=== PATIENT | female | born 1965 | race Caucasian/White ===

== ENCOUNTER → 2019-10-01 | Outpatient (CLI) | payer MEDICARE ==
[~2019-10-01] MED LIST: ADV50250 IH; ALB0.5UD NEB; ALB520 NEB; BAC10T PO; CARB15DR88 OP; DIPH-405 PO; FENO54TA4 PO; FLUT16SP2 NS; GUAI-776 PO; HYDR1TAB PO; IBUP-1984 PO; LORA10CA PO; MONT10TA21 PO; OMEG1CAP54 PO; OMEP-50 PO; PRAV40TA65 PO; PRED5DRO OP; SUMA25TA35 PO
[2019-10-01 10:34] LABS: BASOPHILS % (AUTO) 0.4 % (0-1); EOSINOPHILS # (AUTO) 0.5 X10'3 (0-0.9); EOSINOPHILS % (AUTO) 4.9 % (0-6); HEMATOCRIT 43.6 % (35.0-45.0); HEMOGLOBIN 14.2 g/dl (12.0-16.0); LYMPHOCYTES # (AUTO) 2.2 X10'3 (1.1-4.8); LYMPHOCYTES % (AUTO) 20.4 % (21-51); MEAN CORPUSCULAR HEMOGLOBIN 27.4 PG (27.0-31.0); MEAN CORPUSCULAR HGB CONC 32.7 g/dL (33.0-36.5); MEAN PLATELET VOLUME 7.2 FL (7.4-10.4); MONOCYTES # (AUTO) 0.8 X10'3 (0-0.9); NEUTROPHILS # (AUTO) 7.2 X10'3 (1.8-7.7); NEUTROPHILS % (AUTO) 67.3 % (42-75); PLATELET COUNT 353 X10'3 (140-440); RED BLOOD COUNT 5.19 X10'6 (4.20-5.60); RED CELL DISTRIBUTION WIDTH 16.8 % (11.5-14.5); WHITE BLOOD COUNT 10.7 X10'3 (4.5-11.0)
[2019-10-01 10:45] LABS: PARTIAL THROMBOPLASTIN TIME 26 SECONDS (22-32)
[2019-10-01 10:55] LABS: ALANINE AMINOTRANSFERASE 37 U/L (12-78); ALKALINE PHOSPHATASE 133 IU/L (46-116); ANION GAP 12 (8-16); ASPARTATE AMINO TRANSFERASE 25 U/L (10-37); BILIRUBIN,TOTAL 0.5 MG/DL (0.1-1.0); BLOOD UREA NITROGEN 7 MG/DL (7-18); BUN/CREATININE RATIO 6.8 (6.6-38.0); CALCIUM 9.7 MG/DL (8.5-10.1); CHLORIDE 106 MMOL/L (99-107); CREATININE 1.03 MG/DL (0.40-0.90); GLUCOSE 97 MG/DL (70-104); POTASSIUM 3.9 MMOL/L (3.5-5.1); SODIUM 144 MMOL/L (135-145); TOTAL CARBON DIOXIDE 25.7 MMOL/L (24-32); eGFR 56 ML/MIN
== END | disposition home or self-care (01) ==
LOC: LAB 09:49
PROVIDERS: ATTEND Otolaryngology
DX: D69.1 Qualitative platelet defects (principal); J44.9 Chronic obstructive pulmonary disease, unspecified; Z88.8 Allergy status to other drugs, medicaments and biological substances; Z87.891 Personal history of nicotine dependence
CPT/HCPCS: 36415; 80053; 85025; 85576; 85610; 85730

== ENCOUNTER 2019-10-11 14:20 | Day surgery (SDC) | payer MEDICARE ==
[~2019-10-11] VITALS: Ht 160 cm; Wt 96.0 kg
[2019-10-11] VITALS (8 sets, daily range): BP systolic 138–152; BP diastolic 77–91
[2019-10-11] MEDS: ringers solution, lacted 1,000 ML IV SCH ×2 (08:13→08:36)
--- NOTE | 2019-10-11 13:55 | NUR ---
Received from OR via , accompanied by Anesthesiologist DR WILHELM and report given by Anesthesiolgist. AWAKENS TO VOICE. VITALS STABLE. DRESSINGS DI. CANDIS PAIN.
[~2019-10-11 14:20] MED LIST changes: -ADV50250 IH; -ALB0.5UD NEB; -ALB520 NEB; +ALBU18HF2 INH; -BAC10T PO; +BUDE10.2 PO; -CARB15DR88 OP; +CEPH500C5 PO; -DIPH-405 PO; -FENO54TA4 PO; -GUAI-776 PO; -HYDR1TAB PO; -IBUP-1984 PO; +LIDOcaine 2% (20mg/ml) 5ml vial ONE; -LORA10CA PO; -OMEG1CAP54 PO; -OMEP-50 PO; -PRAV40TA65 PO; -PRED5DRO OP; +ROSU20TA31 PO; +TRAZ-256 PO; +albuterol 2.5 MG/3 ML nebule NEB ONE; +cocaine 4% topical solution 4ml bottle ONE; +dexamethasone sod phosphate 4mg/ml inj. ONE; +ePHEDrine 50MG/ML INJ. ONE; +famotidine 10mg tablet PO ONE; +fentaNYL /PF 50mcg/ml 5ml ampule ONE; +glycopyrrolate 0.2mg/ml inj ONE; +meperidine/PF 25mg/ml syringe ONE; +midazolam 2 mg/2 ml injection ONE; +mupirocin 2% ointment 22GM ONE; +neostigmine methylsulfate 1 MG/ML 10ml vial ONE; +ondansetron/PF 4mg/2ml inj ONE; +oxymetazoline 15 ML nasal spray NS ONE; +phenylephrine 1% (X-tra strg) 15ml nasal spray NS ONE; +propofol inj 20 ML IV ONE; +rocuronium 10mg/ml inj IV ONE; +scopolamine 1.5mg patch.TD72 TD ONE; +sevoflurane 250ml liquid IH ONE; +triamcinolone acetonide 40mg/ml inj ONE
[2019-10-11] MEDS ORDERED: ringers solution, lacted 1,000 ML IV SCH (14:21)
[2019-10-11] MEDS ORDERED: proCHLORperazine 10 MG/2 ml inj IV PRN (14:25)
[2019-10-11] MEDS ORDERED: ondansetron/PF 4mg/2ml inj IV PRN (14:25)
[2019-10-11] MEDS ORDERED: meperidine/PF 25mg/ml syringe IV PRN ×3 (14:25)
[2019-10-11] MEDS ORDERED: morphine 4 MG/ML inj SYRINge IV PRN ×2 (14:25)
[2019-10-11] MEDS ORDERED: salt irrigation nasal spray 45 ML SPRAY NS PRN (14:40)
--- NOTE | 2019-10-11 15:05 | NUR ---
AWAKE AND ORIENTED. VITALS STABLE. DRESSING DI. CANDIS PAIN. HOME WITH HR SPOUSE AT THIS TIME.
== END 2019-10-11 15:05 | disposition home or self-care (01) ==
LOC: PAS 14:20
PROVIDERS: ATTEND Otolaryngology
DX: J32.8 Other chronic sinusitis (principal); J33.8 Other polyp of sinus; J44.9 Chronic obstructive pulmonary disease, unspecified; G47.33 Obstructive sleep apnea (adult) (pediatric); K21.9 Gastro-esophageal reflux disease without esophagitis; G43.909 Migraine, unspecified, not intractable, without status migrainosus; M81.0 Age-related osteoporosis without current pathological fracture; M10.9 Gout, unspecified; Z87.891 Personal history of nicotine dependence; Z90.710 Acquired absence of both cervix and uterus; Z98.41 Cataract extraction status, right eye; Z98.42 Cataract extraction status, left eye; Z90.49 Acquired absence of other specified parts of digestive tract; Z88.8 Allergy status to other drugs, medicaments and biological substances; Z79.899 Other long term (current) drug therapy
CPT/HCPCS: 31253; 31267; 61782; 70486; 70487; 82948; 87070; 87077; 87102; 87186; 93005; 94640; 94760; A6402; C9250; J1100; J2001; J2175; J2250; J2405; J2704; J2710; J3010; J3301; J7040; J7120; 88304; 88311; A4618; A7000; J3490

== ENCOUNTER 2021-11-20 06:05 | Day surgery (SDC) | payer MEDICARE, SELFPAY ==
[2021-11-19 11:07] LABS: BASOPHILS # (AUTO) 0.1 X10'3 (0-0.2); BASOPHILS % (AUTO) 0.8 % (0-1); EOSINOPHILS % (AUTO) 10.6 % (0-6); HEMATOCRIT 45.2 % (35.0-45.0); HEMOGLOBIN 14.6 g/dl (12.0-16.0); LYMPHOCYTES # (AUTO) 2.1 X10'3 (1.1-4.8); LYMPHOCYTES % (AUTO) 21.1 % (21-51); MEAN CORPUSCULAR HEMOGLOBIN 28.6 PG (27.0-31.0); MEAN CORPUSCULAR HGB CONC 32.2 g/dL (33.0-36.5); MEAN PLATELET VOLUME 8.4 FL (7.4-10.4); NEUTROPHILS # (AUTO) 5.6 X10'3 (1.8-7.7); NEUTROPHILS % (AUTO) 57.5 % (42-75); PLATELET COUNT 275 X10'3 (140-440); RED BLOOD COUNT 5.09 X10'6 (4.20-5.60); RED CELL DISTRIBUTION WIDTH 16.7 % (11.5-14.5); WHITE BLOOD COUNT 9.7 X10'3 (4.5-11.0)
[2021-11-19 11:09] LABS: APTT 22 SECONDS (22-32)
[2021-11-19 11:21] LABS: ALBUMIN 4.3 G/DL (3.4-5.0); ANION GAP 10 (8-16); BLOOD UREA NITROGEN 14 MG/DL (7-18); BUN/CREATININE RATIO 17.9 (6.6-38.0); CALCIUM 9.6 MG/DL (8.5-10.1); CHLORIDE 106 MMOL/L (99-107); CREATININE 0.78 MG/DL (0.40-0.90); GLUCOSE 93 MG/DL (70-104); POTASSIUM 4.4 MMOL/L (3.5-5.1); SODIUM 139 MMOL/L (135-145); TOTAL CARBON DIOXIDE 22.7 MMOL/L (24-32); eGFR 76 ML/MIN
[~2021-11-20] VITALS: Ht 160 cm; Wt 104.1 kg
[2021-11-20] VITALS (12 sets, daily range): BP systolic 121–148; BP diastolic 53–76
[~2021-11-20 06:05] MED LIST changes: +CEPH-585 PO; -CEPH500C5 PO; -LIDOcaine 2% (20mg/ml) 5ml vial ONE; -albuterol 2.5 MG/3 ML nebule NEB ONE; -cocaine 4% topical solution 4ml bottle ONE; -dexamethasone sod phosphate 4mg/ml inj. ONE; -ePHEDrine 50MG/ML INJ. ONE; -famotidine 10mg tablet PO ONE; -fentaNYL /PF 50mcg/ml 5ml ampule ONE; -glycopyrrolate 0.2mg/ml inj ONE; -meperidine/PF 25mg/ml syringe ONE; -midazolam 2 mg/2 ml injection ONE; -mupirocin 2% ointment 22GM ONE; -neostigmine methylsulfate 1 MG/ML 10ml vial ONE; -ondansetron/PF 4mg/2ml inj ONE; -oxymetazoline 15 ML nasal spray NS ONE; -phenylephrine 1% (X-tra strg) 15ml nasal spray NS ONE; -propofol inj 20 ML IV ONE; -rocuronium 10mg/ml inj IV ONE; -scopolamine 1.5mg patch.TD72 TD ONE; -sevoflurane 250ml liquid IH ONE; -triamcinolone acetonide 40mg/ml inj ONE
[2021-11-20] MEDS ORDERED: sodium bicarbonate (8.4%) inj. 150 ML in dextrose 5%-water 1,000 ML IV ONE (06:25)
[2021-11-20] MEDS ORDERED: LIDOcaine/PRILOcaine 5gm cream TP ONE (06:30)
[2021-11-20] MEDS ORDERED: POTA-188 PO (06:44)
[2021-11-20] MEDS ORDERED: SUMA100T16 (06:44)
[2021-11-20] MEDS ORDERED: LORA-268 PO (06:44)
[2021-11-20] MEDS ORDERED: ATEN50TA8 PO (06:44)
[2021-11-20] MEDS ORDERED: AZIT-83 PO (06:44)
[2021-11-20] MEDS ORDERED: FURO20TA4 PO (06:44)
[2021-11-20] MEDS ORDERED: DIPH-423 PO (06:57)
[2021-11-20] MEDS ORDERED: LACT1CAP65 PO (06:57)
[2021-11-20] MEDS ORDERED: BIOT10006 PEG (06:57)
[2021-11-20] MEDS ORDERED: MUCINEX (06:57)
[2021-11-20] MEDS ORDERED: ACET500C48 (06:57)
[2021-11-20] MEDS ORDERED: MAGN400C PO (06:57)
[2021-11-20] MEDS ORDERED: METAMUCIL (06:57)
[2021-11-20] MEDS ORDERED: CETI10CA PO (06:57)
[2021-11-20] MEDS ORDERED: OMEG-42 PO (06:57)
[2021-11-20] MEDS ORDERED: VITA-134 PO (06:57)
[2021-11-20] MEDS ORDERED: ACET-890 PO (06:57)
[2021-11-20] MEDS ORDERED: VITAMIN B12 PO (06:57)
[2021-11-20] MEDS ORDERED: fentaNYL/PF 50MCG/1 ML 2ML syringe ONE (07:23)
[2021-11-20] MEDS ORDERED: midazolam 1 mg/ML 2ml injection ONE ×2 (07:23→08:44)
[2021-11-20] MEDS ORDERED: nitroGLYCERIN-Tridil 50MG/D5W 250 ML IV ONE (07:23)
[2021-11-20] MEDS ORDERED: verapamil 2.5 mg/ml inj IV ONE (07:23)
[2021-11-20] MEDS ORDERED: iohexol 350 MG/ML 50ML vial IV ONE (07:24)
[2021-11-20] MEDS ORDERED: iohexol 350MG/ML 100ml bottle IV ONE ×2 (07:24→08:58)
[2021-11-20] MEDS ORDERED: LIDOcaine 1% (10mg/ml)w/preservative injection 20ml MDV ONE (07:24)
[2021-11-20] MEDS ORDERED: heparin 1,000unit/ml 10ml vial 10 ML ONE (07:27)
[2021-11-20] MEDS ORDERED: acetylcysteine 200 MG/ml 4ml vial PO ONE (07:35)
--- NOTE | 2021-11-20 08:00 | NUR ---
Unable to start PIV's. Rachel PICC line RN came to bedside and inserted PIV using ultrasound guidance. Received phone call from pharmacy unable to obtain IV fluids as per doctor orders due to backorder and limited supply of sodium bicarbonate. Bakeshop Cleaner RN Katharine and Frank at bedside, aware of IV situation, stated they would let Dr. Manning know.
[2021-11-20] MEDS ORDERED: hydrALAZINE 20mg/ml inj. IV ONE (09:45)
--- NOTE | 2021-11-20 10:00 | NUR ---
Pt returned from laboratory inspector. Right radial site with vasc band inplace. report from laboratory inspector 12 ml in vasc band. Pt c/o pain to right hand Katharine RN from laboratory inspector removed 2ml air from vasc band. Right groin site stable. No bleeding, bruising or hematoma noted, ayeshag CD&I.
[2021-11-20] MEDS ORDERED: normal saline 1000ml 1,000 ML IV ONE (10:25)
[2021-11-20] MEDS ORDERED: hydrALAZINE 20mg/ml inj. IV PRN (10:25)
--- NOTE | 2021-11-20 12:00 | NUR ---
Cheli Falcon RN at pt bedside talking to pt about TAVR program and setting up pre-testing appointments.
[2021-11-20 13:20] LABS: ISTAT Hct MIX 39 %PCV (35-48); ISTAT O2 SATURATION MIX VENOUS 70 % (60-80); ISTAT SOURCE BLNK
[2021-11-20 13:21] LABS: ISTAT HGB ART 13.3 g/dl (12.0-16.0); ISTAT Hct ART 39 %PCV (35-48); ISTAT O2 SATURATION ARTERIAL 98 % (95-98); ISTAT SOURCE BLNK
--- NOTE | 2021-11-20 13:44 | NUR ---
Vasc band completely deflated, site stable. Dressing applied. Pt up to void in toilet steady on feet. Right groin site stable no bleeding, bruising or hematoma noted, Drsg CD&I.
--- NOTE | 2021-11-20 14:30 | NUR ---
DC instructions given to pt and questions answered, verbalize understanding. Pt able to dress self, steady on feet. Right radial and right groin site stable.
--- NOTE | 2021-11-20 15:00 | NUR ---
DC to home with . Transfered to private car via pt able to transfer self to car with assist due to not being able to use right arm from radial site precautions.
[2021-11-20] MEDS ORDERED: acetylcysteine 200 MG/ml 4ml vial PO SCH (20:00)
== END 2021-11-20 15:00 | disposition home or self-care (01) ==
LOC: SSTAY O 06:05
PROVIDERS: ATTEND Internal Medicine Cardiovascular Disease
DX: R06.02 Shortness of breath (principal); I35.0 Nonrheumatic aortic (valve) stenosis; I25.10 Atherosclerotic heart disease of native coronary artery without angina pectoris; E11.9 Type 2 diabetes mellitus without complications; J44.9 Chronic obstructive pulmonary disease, unspecified; Z79.899 Other long term (current) drug therapy; E78.5 Hyperlipidemia, unspecified; G47.33 Obstructive sleep apnea (adult) (pediatric); Z90.49 Acquired absence of other specified parts of digestive tract; Z98.890 Other specified postprocedural states; Z98.41 Cataract extraction status, right eye; Z98.42 Cataract extraction status, left eye; Z90.710 Acquired absence of both cervix and uterus; Z87.891 Personal history of nicotine dependence; Z88.1 Allergy status to other antibiotic agents; Z83.3 Family history of diabetes mellitus; Z82.49 Family history of ischemic heart disease and other diseases of the circulatory system
CPT/HCPCS: 36000; 36415; 76937; 80048; 82803; 85014; 85025; 85610; 85730; 93005; 93460; 99152; 99153; A6258; C1751; C1769; C1894; J0360; J1644; J2250; J3010; J3490; J7030; Q9967; 76942; A4620; A5120

== ENCOUNTER 2021-11-23 08:28 | Outpatient (CLI) | payer MEDICARE, SELFPAY ==
[~2021-11-23 08:28] MED LIST changes: +ACET-890 PO; +ACET500C48; +ATEN50TA8 PO; +AZIT-83 PO; +BIOT10006 PEG; -CEPH-585 PO; +CETI10CA PO; +DIPH-423 PO; -FLUT16SP2 NS; +FURO20TA4 PO; +LACT1CAP65 PO; +LORA-268 PO; +MAGN400C PO; +METAMUCIL; +MUCINEX; +OMEG-42 PO; +POTA-188 PO; +SUMA100T16 PO; -SUMA25TA35 PO; +VITA-134 PO; +VITAMIN B12 PO
[2021-11-23] MEDS ORDERED: IODIXANOL 320 MG/ML INFUS..BTL 100ML IV ONE (11:48)
[2021-11-23] MEDS ORDERED: IODIXANOL 320 MG/ML INFUS..BTL 50ML IV ONE (11:49)
[2021-11-23 11:54] LABS: BASOPHILS # (AUTO) 0.1 X10'3 (0-0.2); BASOPHILS % (AUTO) 0.6 % (0-1); EOSINOPHILS # (AUTO) 1.1 X10'3 (0-0.9); EOSINOPHILS % (AUTO) 10.4 % (0-6); HEMATOCRIT 41.5 % (35.0-45.0); HEMOGLOBIN 13.6 g/dl (12.0-16.0); LYMPHOCYTES # (AUTO) 1.8 X10'3 (1.1-4.8); LYMPHOCYTES % (AUTO) 16.5 % (21-51); MEAN CORPUSCULAR HEMOGLOBIN 28.7 PG (27.0-31.0); MEAN CORPUSCULAR HGB CONC 32.7 g/dL (33.0-36.5); MEAN CORPUSCULAR VOLUME 87.8 FL (78-98); MEAN PLATELET VOLUME 8.2 FL (7.4-10.4); MONOCYTES # (AUTO) 1.1 X10'3 (0-0.9); MONOCYTES % (AUTO) 10.3 % (2-12); NEUTROPHILS # (AUTO) 6.6 X10'3 (1.8-7.7); NEUTROPHILS % (AUTO) 62.2 % (42-75); PLATELET COUNT 291 X10'3 (140-440); RED BLOOD COUNT 4.73 X10'6 (4.20-5.60); RED CELL DISTRIBUTION WIDTH 16.3 % (11.5-14.5); WHITE BLOOD COUNT 10.7 X10'3 (4.5-11.0)
[2021-11-23 11:58] LABS: APTT 25 SECONDS (22-32)
[2021-11-23 12:00] LABS: ALANINE AMINOTRANSFERASE 39 U/L (12-78); ALBUMIN 4.1 G/DL (3.4-5.0); ALBUMIN/GLOBULIN RATIO 1.3 (1.1-1.5); ALKALINE PHOSPHATASE 100 IU/L (46-116); ANION GAP 12 (8-16); ASPARTATE AMINO TRANSFERASE 26 U/L (10-37); BILIRUBIN,TOTAL 0.7 MG/DL (0.1-1.0); BLOOD UREA NITROGEN 14 MG/DL (7-18); BUN/CREATININE RATIO 15.6 (6.6-38.0); CALCIUM 9.8 MG/DL (8.5-10.1); CHLORIDE 107 MMOL/L (99-107); GLUCOSE 110 MG/DL (70-104); POTASSIUM 4.2 MMOL/L (3.5-5.1); SODIUM 142 MMOL/L (135-145); TOTAL CARBON DIOXIDE 22.6 MMOL/L (24-32); TOTAL PROTEIN 7.3 G/DL (6.4-8.2); eGFR 65 ML/MIN
== END 2021-11-23 23:59 | disposition home or self-care (01) ==
LOC: RT 08:28
PROVIDERS: ATTEND Internal Medicine Cardiovascular Disease
DX: Z01.818 Encounter for other preprocedural examination (principal); I65.23 Occlusion and stenosis of bilateral carotid arteries; K42.9 Umbilical hernia without obstruction or gangrene; M47.819 Spondylosis without myelopathy or radiculopathy, site unspecified; K57.30 Diverticulosis of large intestine without perforation or abscess without bleeding; I70.0 Atherosclerosis of aorta; M95.4 Acquired deformity of chest and rib; L72.3 Sebaceous cyst; I25.10 Atherosclerotic heart disease of native coronary artery without angina pectoris; I35.0 Nonrheumatic aortic (valve) stenosis; J98.11 Atelectasis; Z20.822 Contact with and (suspected) exposure to COVID-19; J45.909 Unspecified asthma, uncomplicated; Z87.891 Personal history of nicotine dependence; Z79.899 Other long term (current) drug therapy; Z90.49 Acquired absence of other specified parts of digestive tract
CPT/HCPCS: 36415; 71046; 71275; 74174; 80053; 85025; 85610; 85730; 87635; 93880; 94010; 94727; 94729; C9803; Q9967

== ENCOUNTER 2021-11-30 09:05 | Inpatient (IN) | payer MEDICARE, SELFPAY ==
[~2021-11-30] VITALS: Ht 160 cm; Wt 101.5 kg
[~2021-11-30 09:05] MED LIST changes: -METAMUCIL; -MUCINEX; -VITAMIN B12 PO
[2021-12-06] VITALS (21 sets, daily range): BP systolic 110–158; BP diastolic 50–89
[2021-12-06] MEDS ORDERED: ringers solution, lacted 1,000 ML IV SCH (05:00)
[2021-12-06] MEDS ORDERED: ondansetron/PF 4mg/2ml inj IV PRN ×2 (05:30→11:40)
[2021-12-06] MEDS ORDERED: DOCUMENT DATE & TIME OF BETA-BLOCKER PO ONE (05:30)
[2021-12-06] MEDS ORDERED: cefazolin/dext.iso 2gm/50ml 50 ML IV ONE (05:30)
[2021-12-06] MEDS ORDERED: nitroPRUSSIDE (NIPRIDE) (200MCG/ML) 100ML Drip IV SCH (05:30)
[2021-12-06] MEDS ORDERED: famotidine 20mg tablet PO ONE ×2 (05:30→06:15)
[2021-12-06] MEDS ORDERED: aspirin 325mg tablet PO ONE (05:30)
[2021-12-06] MEDS ORDERED: phenylephrine 50 MG in NS 250ml IVPB IV SCH (05:30)
[2021-12-06] MEDS ORDERED: LIDOcaine 1% (10mg/ml)w/preservative injection 20ml MDV ONE (08:18)
[2021-12-06] MEDS ORDERED: heparin 1,000 UNITS/NS 500ml 1,500 ML ONE (08:19)
[2021-12-06] MEDS ORDERED: iohexol 350 MG/ML 50ML vial IV ONE (08:19)
[2021-12-06] MEDS ORDERED: iohexol 350MG/ML 100ml bottle IV ONE (08:19)
[2021-12-06] MEDS ORDERED: midazolam 1 mg/ML 2ml injection ONE (09:34)
[2021-12-06] MEDS ORDERED: FENTANYL CITRATE/PF 50 MCG/1 ML VIAL ONE (09:34)
[2021-12-06] MEDS ORDERED: ondansetron/PF 4mg/2ml inj ONE (10:18)
[2021-12-06] MEDS ORDERED: LIDOcaine 2% (20mg/ml) 5ml vial ONE (10:18)
[2021-12-06] MEDS ORDERED: propofol inj 20 ML IV ONE (10:18)
[2021-12-06] MEDS ORDERED: dexamethasone sod phosphate 4mg/ml inj. ONE (10:19)
[2021-12-06] MEDS ORDERED: rocuronium 10mg/ml inj IV ONE (10:19)
[2021-12-06] MEDS ORDERED: protamine sulfate 10mg/ml inj. ONE (11:20)
[2021-12-06] MEDS ORDERED: meperidine/PF 25mg/ml syringe ONE (11:27)
[2021-12-06] MEDS ORDERED: ALPRAZolam 0.25mg tablet PO PRN (11:40)
[2021-12-06] MEDS ORDERED: docusate sod 100mg capsule PO PRN (11:40)
[2021-12-06] MEDS ORDERED: normal saline 1000ml 1,000 ML IV SCH (11:40)
[2021-12-06] MEDS ORDERED: magnesium 2GM in 50ml NS 50 ML IV PRN (11:40)
[2021-12-06] MEDS ORDERED: pantoprazole 40mg Tablet.DR PO PRN (11:40)
[2021-12-06] MEDS ORDERED: acetaminophen 325mg tablet PO PRN (11:40)
[2021-12-06] MEDS ORDERED: potassium Cl 20 mEq SR tablet PO PRN (11:40)
[2021-12-06] MEDS ORDERED: magnesium 4gm in 100ml NS 100 ML IV PRN (11:40)
[2021-12-06] MEDS ORDERED: diphenhydrAMINE 25mg capsule PO PRN (11:40)
[2021-12-06] MEDS ORDERED: proCHLORperazine 10 MG/2 ml inj IV PRN (11:40)
[2021-12-06] MEDS ORDERED: hydrALAZINE 20mg/ml inj. IV PRN (11:40)
[2021-12-06] MEDS ORDERED: potassium Cl 40MEQ/1/2NS 520ml 520 ML IV PRN (11:40)
[2021-12-06] MEDS ORDERED: labetalol 20mg/4ml (5mg/ml) syringe IV PRN (11:40)
[2021-12-06] MEDS ORDERED: potassium CL 10mEq/100ml bag 100 ML IV PRN (11:40)
--- NOTE | 2021-12-06 11:48 | NUR ---
Received from OR via HOSITAL BED , accompanied by Anesthesiologist DR ESPINOZA and report given by Anesthesiolgist. PT PRESENTS POST TAVR WITH LEFT WRIST ART LINE WITH SHEATH, 18G RIGHT FOREARM, LEFT RA DRESSING WITH SCANT BLOOD, VSS. Addendum: 12/06/21 at 1219 by Sondra Mendes RN Amended: Links added.
--- NOTE | 2021-12-06 11:48 | NUR ---
NEURO CHECK WITH PT PUSH PULLS, EYEBROW LIFT AND SMILE ALL INTACT. DORSALIS PEDUS DOPPLER CHECKED WITH NORMAL VASCULATION. Addendum: 12/06/21 at 1229 by Sondra Mendes RN Amended: Links added.
--- NOTE | 2021-12-06 12:27 | NUR ---
RIGHT ARTERY CLOSURE HAS SCANT BLOOD. AREA WAS MARKED WITH PERMANENT MARKER FOR REFERANCE. Addendum: 12/06/21 at 1243 by Sondra Mendes RN Amended: Links added.
[2021-12-06] MEDS ORDERED: SUMAtriptan 25 MG tablet PO ONE (12:35)
--- NOTE | 2021-12-06 12:42 | NUR ---
KICK PRESS OPERATOR CAME IN AND REMOVED LEFT WRIST SHEATH AND PLACED VASC BAND. Addendum: 12/06/21 at 1243 by Sondra Mendes RN Amended: Links added.
[2021-12-06] MEDS ORDERED: non-formulary drug (Acetaminophen (Tylenol) 1 TAB) PO PRN (13:00)
[2021-12-06] MEDS ORDERED: albuterol 2.5 MG/3 ML nebule NEB PRN (13:05)
[2021-12-06] MEDS ORDERED: traZODone 50mg tablet PO PRN (13:10)
--- NOTE | 2021-12-06 13:18 | NUR ---
Report called to receiving nurse LILLIAM FARFAN. Transferred via HOSPITAL BED WITH TRANSPORT MONITOR BY POOJA FARFAN. ONE PT Belongings BAG SENT TO ROOM 3017A WITH UPPER DENTURE AND GLASSES. PT BED IN LOW LOCKED POSITION WITH CALL LIGHT IN REACH. LILLIAM RN AT BEDSIDE TO ZAKI PT. RIGHT GROIN DRESSING VIEWED BY RECEIVING NURSE ALONG WITH LEFT VASC BAND. SYRINGE FOR VASC BAND PROVIDED TO ELINOR RN.Special Issues communicated to receiving nurse. Addendum: 12/06/21 at 1337 by Sondra Mendes RN Amended: Links added.
[2021-12-06] MEDS: ceFAZolin 1GM/D5W- ADD-VANTAGE 50 ML IV SCH (16:28)
[2021-12-06] MEDS: sod chloride 0.9% 10ml flush syringe IV SCH (16:35)
--- NOTE | 2021-12-06 18:12 | NUR ---
Patient in room MED 317. I have received report from LILLIAM FARFAN and had the opportunity to ask questions and assume patient care.
[2021-12-06] MEDS ORDERED: budesonide 0.5mg/2ml UD nebule IH SCH (20:00)
[2021-12-06] MEDS: VANCOMYCIN 1GM/200ML IVPB 200 ML IV SCH (20:31)
[2021-12-06] MEDS: OMEGA-3/DHA/EPA/FISH OIL 1 EACH CAPSULE.DR PO SCH (20:31)
[2021-12-06] MEDS ORDERED: LORazepam 0.5 MG tablet PO SCH (21:00)
[2021-12-06] MEDS ORDERED: montelukast 10mg tablet PO SCH (21:00)
[2021-12-06] MEDS ORDERED: diphenhydrAMINE 25mg capsule PO SCH (21:00)
[2021-12-06] MEDS: SUMAtriptan 25 MG tablet PO PRN ×2 (22:51→22:54)
[2021-12-07] MEDS: sod chloride 0.9% 10ml flush syringe IV SCH ×2 (00:10→07:33)
[2021-12-07] MEDS: ceFAZolin 1GM/D5W- ADD-VANTAGE 50 ML IV SCH ×2 (00:10→07:26)
[2021-12-07 02:00] VITALS: BP 102/54
[2021-12-07 05:40] LABS: BASOPHILS % (AUTO) 0.2 % (0-1); EOSINOPHILS % (AUTO) 0.1 % (0-6); HEMATOCRIT 38.5 % (35.0-45.0); HEMOGLOBIN 12.3 g/dl (12.0-16.0); LYMPHOCYTES # (AUTO) 1.1 X10'3 (1.1-4.8); LYMPHOCYTES % (AUTO) 8.1 % (21-51); MEAN CORPUSCULAR HEMOGLOBIN 28.4 PG (27.0-31.0); MEAN CORPUSCULAR HGB CONC 31.9 g/dL (33.0-36.5); MEAN CORPUSCULAR VOLUME 88.8 FL (78-98); MONOCYTES # (AUTO) 1.6 X10'3 (0-0.9); NEUTROPHILS # (AUTO) 10.8 X10'3 (1.8-7.7); NEUTROPHILS % (AUTO) 79.6 % (42-75); PLATELET COUNT 275 X10'3 (140-440); RED BLOOD COUNT 4.33 X10'6 (4.20-5.60); WHITE BLOOD COUNT 13.6 X10'3 (4.5-11.0)
[2021-12-07 06:00] VITALS: BP 115/60
--- NOTE | 2021-12-07 06:02 | NUR ---
Problems reprioritized. Patient report given, questions answered & plan of care reviewed with LILLIAM FARFAN.
[2021-12-07 06:03] LABS: ALANINE AMINOTRANSFERASE 29 U/L (12-78); ALBUMIN 3.6 G/DL (3.4-5.0); ALKALINE PHOSPHATASE 90 IU/L (46-116); ANION GAP 10 (8-16); ASPARTATE AMINO TRANSFERASE 26 U/L (10-37); BILIRUBIN,TOTAL 0.4 MG/DL (0.1-1.0); BLOOD UREA NITROGEN 22 MG/DL (7-18); BUN/CREATININE RATIO 21.6 (6.6-38.0); CALCIUM 9.7 MG/DL (8.5-10.1); CHLORIDE 106 MMOL/L (99-107); CREATININE 1.02 MG/DL (0.40-0.90); GLUCOSE 136 MG/DL (70-104); MAGNESIUM 2.1 MG/DL (1.5-2.4); SODIUM 139 MMOL/L (135-145); TOTAL CARBON DIOXIDE 22.9 MMOL/L (24-32); TOTAL PROTEIN 7.3 G/DL (6.4-8.2); eGFR 56 ML/MIN
[2021-12-07 06:16] LABS: POTASSIUM 4.9 MMOL/L (3.5-5.1)
[2021-12-07] MEDS: OMEGA-3/DHA/EPA/FISH OIL 1 EACH CAPSULE.DR PO SCH (07:30)
[2021-12-07] MEDS ORDERED: magnesium oxide 400mg tablet PO SCH (08:00)
[2021-12-07] MEDS ORDERED: potassium chloride 10mEq ER tablet PO SCH (08:00)
[2021-12-07] MEDS ORDERED: cetirizine 10mg tablet PO SCH (08:00)
[2021-12-07] MEDS ORDERED: atorvastatin 20mg tablet PO SCH (08:00)
[2021-12-07] MEDS ORDERED: furosemide 20MG tablet PO SCH (08:00)
[2021-12-07] MEDS ORDERED: atenolol 50mg tablet PO SCH (08:00)
[2021-12-07] MEDS ORDERED: vitamin E 400 unit capsule PO SCH (08:00)
[2021-12-07] MEDS: VANCOMYCIN 1GM/200ML IVPB 200 ML IV SCH (08:45)
[2021-12-07] MEDS ORDERED: ASPI-1265 PO (10:05)
[2021-12-07 11:00] VITALS: BP 120/50
--- NOTE | 2021-12-07 11:30 | NUR ---
Dr Jarvis spoke with pt family and pt. Based on CT he recommends to hold off on surgery. Pt and family agree. Suction on CT was increased to 40 instead of 20. Ok to add TUMS to pts medication regimen Addendum: 12/07/21 at 1242 by Destinee Currie RN wrong patient
--- NOTE | 2021-12-07 12:54 | NUR ---
Pt stable for d/c per MD orders Pt stable for d/c per MD orders. All d/c ppwk was reviewed with pt and pt family. Both verbalized understanding. PIV was removed from R FA - pt tolerated well. New RX sent to [facility] in [place]. All personal belongings were sent with the pt. Pt was wheeled out by nursing staff to private vehicle with pt waiting.
== END 2021-12-07 12:05 | disposition home or self-care (01) | DRG 267 ==
LOC: UNDOADMIN 09:05 → PAS IN 09:05 → MED 3N 12-06 13:20
PROVIDERS: ADMIT Internal Medicine Cardiovascular Disease; ATTEND Internal Medicine Cardiovascular Disease
PROC: B3101ZZ Fluoroscopy of Thoracic Aorta using Low Osmolar Contrast (ICD-10-PCS; 2021-12-06)
PROC: 5A1223Z Performance of Cardiac Pacing, Continuous (ICD-10-PCS; 2021-12-06)
PROC: 5A09357 Assistance with Respiratory Ventilation, Less than 24 Consecutive Hours, Continuous Positive Airway Pressure (ICD-10-PCS; 2021-12-06)
PROC: X2RF332 Replacement of Aortic Valve using Zooplastic Tissue, Rapid Deployment Technique, Percutaneous Approach, New Technology Group 2 (ICD-10-PCS; principal; 2021-12-06 09:32)
DX: I35.0 Nonrheumatic aortic (valve) stenosis (principal); E78.00 Pure hypercholesterolemia, unspecified; E78.5 Hyperlipidemia, unspecified; E66.9 Obesity, unspecified; N28.9 Disorder of kidney and ureter, unspecified; N26.1 Atrophy of kidney (terminal); G47.33 Obstructive sleep apnea (adult) (pediatric); M85.80 Other specified disorders of bone density and structure, unspecified site; J32.9 Chronic sinusitis, unspecified; I45.10 Unspecified right bundle-branch block; J44.9 Chronic obstructive pulmonary disease, unspecified; M16.10 Unilateral primary osteoarthritis, unspecified hip; Z87.442 Personal history of urinary calculi; Z87.828 Personal history of other (healed) physical injury and trauma; Z68.39 Body mass index [BMI] 39.0-39.9, adult; Z00.6 Encounter for examination for normal comparison and control in clinical research program
CPT/HCPCS: 33361; 36415; 71045; 76937; 80053; 82948; 83735; 83880; 85025; 85347; 86885; 86900; 86901; 86920; 87081; 93005; 93308; 93355; A4618; A6258; A6449; C1760; C1769; C1894; G0378; J0690; J1100; J1644; J2175; J2250; J2370; J2405; J2704; J2720; J3010; J3370; J3490; J7040; J7050; J7120; Q0163; Q9967

== ENCOUNTER 2022-01-18 09:48 | Outpatient (CLI) | payer MEDICARE, SELFPAY | END 2022-01-18 23:59 | disposition home or self-care (01) | LOC: CARD DIAG 09:48 | PROVIDERS: ATTEND Internal Medicine Cardiovascular Disease | DX: I34.0 Nonrheumatic mitral (valve) insufficiency (principal); I45.10 Unspecified right bundle-branch block; Z95.2 Presence of prosthetic heart valve; Z48.812 Encounter for surgical aftercare following surgery on the circulatory system | CPT/HCPCS: 93005; 93306 ==

== ENCOUNTER 2024-12-22 15:54 | Inpatient (IN) | payer MEDICARE ==
[~2024-12-22] VITALS: Ht 160 cm; Wt 107.2 kg
[2024-12-22] VITALS (7 sets, daily range): BP systolic 92–125; BP diastolic 47–60; PULSE 91–100; RESP 18–33; TEMP 97.1–99.9; O2SAT 98–100
[~2024-12-22 15:54] MED LIST changes: -ACET500C48; +ACET500C48 IH; +ASPI-1265 PO; +ATR0.5NEB NEB; +AZIT-164 PO; -AZIT-83 PO; +BACL10TA2 PO; +CHOL200080 PO; +CYAN50007 PO; +DAPA10TA PO; +FAMO20TA8 PO; +FENO145T25 PO; +FLUT1BLS11 PO; +GUAI120015 PO; -MAGN400C PO; +MONT-48 PO; -MONT10TA21 PO; +POLY119P2 PO; -POTA-188 PO; +RIZA10TA28 PO; -ROSU20TA31 PO; +ROSU20TA98 PO; +SEMA0.258 SQ; -TRAZ-256 PO; -VITA-134 PO; +VITA-288 PO; +WARF3TAB56 PO
[2024-12-22 16:34] LABS: BASOPHILS % (AUTO) 0.1 % (0-1); EOSINOPHILS % (AUTO) 0 % (0-6); HEMATOCRIT 24.4 % (35.0-45.0); HEMOGLOBIN 7.7 g/dl (12.0-16.0); LYMPHOCYTES # (AUTO) 3.3 X10'3 (1.1-4.8); LYMPHOCYTES % (AUTO) 18.1 % (21-51); MEAN CORPUSCULAR HEMOGLOBIN 28.2 PG (27.0-31.0); MEAN CORPUSCULAR HGB CONC 31.5 g/dL (33.0-36.5); MEAN CORPUSCULAR VOLUME 89.5 FL (78-98); MEAN PLATELET VOLUME 7.9 FL (7.4-10.4); MONOCYTES # (AUTO) 1.7 X10'3 (0-0.9); NEUTROPHILS # (AUTO) 13.3 X10'3 (1.8-7.7); NEUTROPHILS % (AUTO) 72.8 % (42-75); PLATELET COUNT 417 X10'3 (140-440); RED BLOOD COUNT 2.72 X10'6 (4.20-5.60); RED CELL DISTRIBUTION WIDTH 24.4 % (11.5-14.5); WHITE BLOOD COUNT 18.3 X10'3 (4.5-11.0)
[2024-12-22] MEDS ORDERED: mag hydrox/Alum hydrox/simeth 30ml oral suspension PO PRN (16:55)
[2024-12-22] MEDS ORDERED: HYDROcodone/acetaminophen 5mg/325mg tablet PO PRN (16:55)
[2024-12-22] MEDS ORDERED: potassium Cl 20 mEq SR tablet PO PRN (16:55)
[2024-12-22] MEDS ORDERED: magnesium hydroxide 30ml (MOM) UD suspension PO PRN (16:55)
[2024-12-22] MEDS ORDERED: potassium Cl 40MEQ/1/2NS 520ml 520 ML IV PRN (16:55)
[2024-12-22] MEDS ORDERED: magnesium Cl slow-release 64mg tablet PO PRN (16:55)
[2024-12-22] MEDS ORDERED: HYDROcodone/acetaminophen 10/325mg tab PO PRN (16:55)
[2024-12-22] MEDS ORDERED: magnesium sulf-water 4G/100mL 100 ML IV PRN (16:55)
[2024-12-22] MEDS ORDERED: magnesium sulf-water 2g/50mL 50 ML IV PRN (16:55)
[2024-12-22] MEDS ORDERED: acetaminophen 325mg tablet PO PRN (16:55)
[2024-12-22 16:58] LABS: ANION GAP 10 (8-16); BLOOD UREA NITROGEN 24 MG/DL (7-18); BUN/CREATININE RATIO 25.8 (10.0-20.0); CHLORIDE 105 MMOL/L (99-107); CREATININE 0.93 MG/DL (0.40-0.90); GLUCOSE 132 MG/DL (70-104); POTASSIUM 3.6 MMOL/L (3.5-5.1); SODIUM 141 MMOL/L (135-145); TOTAL CARBON DIOXIDE 26.5 MMOL/L (24-32)
[2024-12-22 16:59] LABS: ALANINE AMINOTRANSFERASE 28 U/L (12-78); ALBUMIN 3.7 G/DL (3.4-5.0); ALBUMIN/GLOBULIN RATIO 0.9 (1.1-1.5); ALKALINE PHOSPHATASE 89 IU/L (46-116); ASPARTATE AMINO TRANSFERASE 22 U/L (10-37); BILIRUBIN,TOTAL 0.8 MG/DL (0.1-1.0); CALCIUM 9.2 MG/DL (8.5-10.1); PRO BRAIN NATRIURETIC PEPTIDE 266 PG/ML (0-125); TOTAL PROTEIN 7.6 G/DL (6.4-8.2); eCRCL 53 ML/MIN; eGFR 61 ML/MIN
[2024-12-22 17:04] LABS: APTT 33 SECONDS (22-32); INR 3.3 INR; PROTHROMBIN TIME 31.6 SECONDS (9.0-12.0)
[2024-12-22 17:08] LABS: ANISOCYTOSIS 3+; HYPOCHROMASIA 1+; MICROCYTOSIS 1+; PLATELET ESTIMATE NORMAL
[2024-12-22 17:18] LABS: MAGNESIUM 1.8 MG/DL (1.5-2.4)
[2024-12-22] MEDS ORDERED: ipratropium/albuterol 3ml nebule NEB PRN (17:50)
[2024-12-22] MEDS: atenolol 50mg tablet PO ONE (18:40)
[2024-12-22] MEDS: lisinopril 5mg tablet PO ONE (18:40)
[2024-12-22] MEDS: furosemide 40mg/4ml inj IV ONE (18:41)
[2024-12-22] MEDS ORDERED: diazepam 5mg tablet PO ONE (18:50)
[2024-12-22] MEDS: aspirin 81mg, enteric-coated 1 TAB TABLET.DR PO ONE (19:36)
[2024-12-22] MEDS: docusate sod 100mg capsule PO SCH (19:46)
[2024-12-22] MEDS: K and/or MAG REPLACEMENT MC SCH (19:47)
[2024-12-22] MEDS ORDERED: heparin, porcine 5000 units/ml vial SQ SCH (20:00)
[2024-12-22] MEDS: budesonide 0.5mg/2ml UD nebule IH ONE (20:06)
[2024-12-22] MEDS ORDERED: pantoprazole 40 MG vial IV ONE (20:20)
[2024-12-22] MEDS: atorvastatin 10mg tablet PO SCH (21:52)
[2024-12-23] VITALS (12 sets, daily range): BP systolic 103–158; BP diastolic 43–74; PULSE 59–98; RESP 15–20; TEMP 97.4–97.7; O2SAT 95–98
[2024-12-23] MEDS: magnesium sulf-water 2g/50mL 50 ML IV ONE (01:10)
[2024-12-23] MEDS: phytonadione inj. 5 MG in normal saline 100ml IV soln 100 ML IV ONE (01:11)
[2024-12-23] MEDS: furosemide 10 MG/1 ML 10ml inj IV ONE (01:14)
[2024-12-23] MEDS: pantoprazole 40 MG vial IV ONE (01:16)
[2024-12-23 06:23] LABS: BASOPHILS % (AUTO) 0.1 % (0-1); EOSINOPHILS % (AUTO) 0 % (0-6); HEMATOCRIT 24.9 % (35.0-45.0); HEMOGLOBIN 7.9 g/dl (12.0-16.0); LYMPHOCYTES # (AUTO) 2.1 X10'3 (1.1-4.8); LYMPHOCYTES % (AUTO) 12.6 % (21-51); MEAN CORPUSCULAR HEMOGLOBIN 28.9 PG (27.0-31.0); MEAN CORPUSCULAR HGB CONC 31.9 g/dL (33.0-36.5); MEAN CORPUSCULAR VOLUME 90.6 FL (78-98); MEAN PLATELET VOLUME 7.9 FL (7.4-10.4); MONOCYTES # (AUTO) 1.6 X10'3 (0-0.9); MONOCYTES % (AUTO) 9.8 % (2-12); NEUTROPHILS % (AUTO) 77.5 % (42-75); PLATELET COUNT 304 X10'3 (140-440); RED BLOOD COUNT 2.74 X10'6 (4.20-5.60); RED CELL DISTRIBUTION WIDTH 21.4 % (11.5-14.5); WHITE BLOOD COUNT 16.8 X10'3 (4.5-11.0)
[2024-12-23 06:32] LABS: INR 1.7 INR; PROTHROMBIN TIME 17.2 SECONDS (9.0-12.0)
[2024-12-23 06:43] LABS: % IRON SATURATION 22 % (11-46); IRON 73 UG/DL (49-151); TOTAL IRON BINDING CAPACITY 330 UG/DL (259-388)
[2024-12-23 07:02] LABS: ALANINE AMINOTRANSFERASE 23 U/L (12-78); ALBUMIN 3.4 G/DL (3.4-5.0); ALKALINE PHOSPHATASE 82 IU/L (46-116); ANION GAP 10 (8-16); ASPARTATE AMINO TRANSFERASE 20 U/L (10-37); BILIRUBIN,TOTAL 1.2 MG/DL (0.1-1.0); BLOOD UREA NITROGEN 27 MG/DL (7-18); BUN/CREATININE RATIO 34.2 (10.0-20.0); CALCIUM 8.7 MG/DL (8.5-10.1); CHLORIDE 107 MMOL/L (99-107); CREATININE 0.79 MG/DL (0.40-0.90); FERRITIN 24 NG/ML (8-252); GLUCOSE 110 MG/DL (70-104); LACTATE DEHYDROGENASE 221 U/L (81-234); POTASSIUM 3.9 MMOL/L (3.5-5.1); SODIUM 141 MMOL/L (135-145); THYROID STIMULATING HORMONE 5.18 ulU/ml (0.34-4.50); TOTAL CARBON DIOXIDE 24.3 MMOL/L (24-32); TOTAL PROTEIN 6.7 G/DL (6.4-8.2); eCRCL 63 ML/MIN; eGFR 74 ML/MIN
[2024-12-23] MEDS: furosemide 40mg/4ml inj IV SCH (07:25)
[2024-12-23] MEDS: pantoprazole 40 MG vial IV SCH (07:26)
[2024-12-23] MEDS: ondansetron/PF 4mg/2ml inj IV PRN (07:29)
[2024-12-23] MEDS: lisinopril 5mg tablet PO SCH (07:32)
[2024-12-23] MEDS: atenolol 50mg tablet PO SCH (07:33)
[2024-12-23] MEDS: phytonadione inj. 3 MG in normal saline 100ml IV soln 100 ML IV ONE ×2 (07:36→08:37)
[2024-12-23] MEDS ORDERED: aspirin 81mg, enteric-coated 1 TAB TABLET.DR PO SCH (08:00)
[2024-12-23] MEDS: budesonide 0.5mg/2ml UD nebule IH SCH (10:15)
[2024-12-23 11:13] LABS: BILIRUBIN,URINE NEGATIVE (Neg); CLARITY,URINE CLEAR (Clear); COLOR,URINE YELLOW (Yellow); GLUCOSE, URINE NEGATIVE (Neg); KETONES,URINE NEGATIVE (Neg); LEUKOCYTE ESTERASE ,URINE NEGATIVE (Neg); NITRITES, URINE NEGATIVE (Neg); OCCULT BLOOD,URINE NEGATIVE (Neg); PH,URINE 5.5 (4.8-8.0); PROTEIN,URINE NEGATIVE (Neg); UROBILINOGEN,URINE 0.2 E.U/dL (0.2-1.0)
[2024-12-23 11:15] LABS: UA COLLECTION TYPE CLN CATCH MIDSTREAM
[2024-12-23 14:36] LABS: INR 1.3 INR; PROTHROMBIN TIME 13.1 SECONDS (9.0-12.0)
[2024-12-23] MEDS ORDERED: verapamil 2.5 mg/ml inj IV ONE (15:23)
[2024-12-23] MEDS ORDERED: heparin 1,000unit/ml 10ml vial 10 ML ONE (15:23)
[2024-12-23] MEDS ORDERED: iohexol 350MG/ML 100ml bottle IV ONE (15:23)
[2024-12-23] MEDS ORDERED: iohexol 350 MG/ML 50ML vial IV ONE (15:23)
[2024-12-23] MEDS ORDERED: LIDOcaine 1% (10mg/ml) 2ml vial ONE (15:23)
[2024-12-23] MEDS ORDERED: nitroGLYCERIN 500mcg/5mL D5W 5 ML IV ONE (15:24)
[2024-12-23] MEDS ORDERED: midazolam 1 mg/ML 2ml injection ONE (16:14)
[2024-12-23] MEDS ORDERED: fentaNYL/PF 50MCG/1 ML 2ML syringe ONE (16:14)
[2024-12-23] MEDS ORDERED: LIDOcaine 1% 30ml preserv. free vial ONE (17:02)
[2024-12-23] MEDS ORDERED: heparin 1,000 UNITS/NS 500ml 500 ML ONE (17:32)
[2024-12-23 18:12] LABS: ISTAT HGB ART 6.5 g/dl (12.0-16.0); ISTAT Hct ART 19 %PCV (35-45); ISTAT O2 SATURATION ARTERIAL 97 % (95-98); ISTAT SOURCE ART
[2024-12-23 19:29] LABS: RED BLOOD COUNT 2.25 X10'6 (4.20-5.60); RETICULOCYTE % (AUTO) 10.4 % (0.5-1.5)
[2024-12-23] MEDS ORDERED: morphine 4 MG/ML inj SYRINge IV PRN (19:35)
[2024-12-23] MEDS ORDERED: normal saline 1000ml 1,000 ML IV SCH (19:35)
[2024-12-23] MEDS ORDERED: non-formulary drug (Albuterol Sulfate (Ventolin Hfa) 2 PUFF) INH PRN (21:10)
[2024-12-23] MEDS ORDERED: ipratropium 0.5 MG/2.5ML nebule NEB PRN (21:10)
[2024-12-23] MEDS: acetaminophen 325mg tablet PO PRN (21:34)
[2024-12-23] MEDS: montelukast 10mg tablet PO SCH (21:38)
[2024-12-23] MEDS: atorvastatin 20mg tablet PO SCH (21:38)
[2024-12-23] MEDS: diphenhydrAMINE 25mg capsule PO SCH (21:38)
[2024-12-23] MEDS ORDERED: ipratropium/albuterol 3ml nebule IH PRN (22:10)
[2024-12-23] MEDS: acetylcysteine 200 MG/ml 4ml vial PO SCH (23:19)
[2024-12-24] VITALS (13 sets, daily range): BP systolic 95–138; BP diastolic 48–56; PULSE 70–107; RESP 14–22; TEMP 97.2–97.9; O2SAT 95–100
[2024-12-24 06:30] LABS: BASOPHILS % (AUTO) 0.2 % (0-1); EOSINOPHILS % (AUTO) 0 % (0-6); LYMPHOCYTES # (AUTO) 1.8 X10'3 (1.1-4.8); LYMPHOCYTES % (AUTO) 10.4 % (21-51); MEAN CORPUSCULAR HEMOGLOBIN 29.3 PG (27.0-31.0); MEAN CORPUSCULAR HGB CONC 31.2 g/dL (33.0-36.5); MEAN CORPUSCULAR VOLUME 93.8 FL (78-98); MEAN PLATELET VOLUME 7.7 FL (7.4-10.4); MONOCYTES # (AUTO) 1.9 X10'3 (0-0.9); MONOCYTES % (AUTO) 11.2 % (2-12); NEUTROPHILS # (AUTO) 13.3 X10'3 (1.8-7.7); NEUTROPHILS % (AUTO) 78.2 % (42-75); PLATELET COUNT 281 X10'3 (140-440); RED BLOOD COUNT 1.97 X10'6 (4.20-5.60); RED CELL DISTRIBUTION WIDTH 22.6 % (11.5-14.5)
[2024-12-24 06:40] LABS: INR 1.1 INR; PROTHROMBIN TIME 11.2 SECONDS (9.0-12.0)
[2024-12-24 06:40] LABS: ISTAT HGB MIX 6.1 g/dl (12.0-16.0); ISTAT Hct MIX 18 %PCV (35-45); ISTAT O2 SATURATION MIX VENOUS 50 % (60-80); ISTAT SOURCE VEN
[2024-12-24 06:44] LABS: HEMOGLOBIN 5.8 g/dl (12.0-16.0)
[2024-12-24 06:45] LABS: HEMATOCRIT 18.5 % (35.0-45.0)
[2024-12-24 06:50] LABS: ALANINE AMINOTRANSFERASE 17 U/L (12-78); ALBUMIN 3.1 G/DL (3.4-5.0); ALKALINE PHOSPHATASE 73 IU/L (46-116); ANION GAP 10 (8-16); ASPARTATE AMINO TRANSFERASE 18 U/L (10-37); BILIRUBIN,TOTAL 1.2 MG/DL (0.1-1.0); BLOOD UREA NITROGEN 35 MG/DL (7-18); BUN/CREATININE RATIO 39.8 (10.0-20.0); CALCIUM 8.6 MG/DL (8.5-10.1); CHLORIDE 107 MMOL/L (99-107); CREATININE 0.88 MG/DL (0.40-0.90); GLUCOSE 115 MG/DL (70-104); POTASSIUM 3.7 MMOL/L (3.5-5.1); PRO BRAIN NATRIURETIC PEPTIDE 228 PG/ML (0-125); SODIUM 140 MMOL/L (135-145); TOTAL CARBON DIOXIDE 22.8 MMOL/L (24-32); TOTAL PROTEIN 6.1 G/DL (6.4-8.2); eCRCL 56 ML/MIN; eGFR 66 ML/MIN
[2024-12-24] MEDS: budesonide 0.5mg/2ml UD nebule IH SCH (07:53)
[2024-12-24] MEDS: albuterol 2.5 MG/3 ML nebule NEB PRN (07:53)
[2024-12-24] MEDS ORDERED: FLUTICASONE PROPION PO SCH (08:00)
[2024-12-24] MEDS ORDERED: warfarin 3mg tablet PO SCH (08:00)
[2024-12-24] MEDS ORDERED: SALMETEROL PO SCH (08:00)
[2024-12-24] MEDS: aspirin 81mg tab.chew PO SCH (08:00)
[2024-12-24] MEDS: cetirizine 10mg tablet PO SCH (08:00)
[2024-12-24] MEDS: famotidine 20mg tablet PO SCH (08:17)
[2024-12-24] MEDS: atenolol 50mg tablet PO SCH (08:18)
[2024-12-24] MEDS: furosemide 20MG tablet PO SCH ×2 (08:19→13:11)
[2024-12-24] MEDS: cholecalciferol (vitamin D3) 1,000 unit (25mcg) tablet PO SCH (08:19)
[2024-12-24] MEDS: cyanocobalamin 500mcg tablet PO SCH (08:20)
[2024-12-24] MEDS: polyethylene glycol 3350 17gm powd pack PO SCH (08:21)
[2024-12-24] MEDS: OMEGA-3/DHA/EPA/FISH OIL 1 EACH CAPSULE.DR PO SCH (08:21)
[2024-12-24 08:32] LABS: TRANSFERRIN 285 mg/dL (192-364)
[2024-12-24 09:26] LABS: OCCULT BLOOD STOOL POSITIVE (Neg)
[2024-12-24] MEDS: LORazepam 1 MG tablet PO PRN (09:35)
[2024-12-24] MEDS: vitamin E 400 unit capsule PO SCH (09:36)
[2024-12-24] MEDS: DAPAGLIFLOZIN 10MG TABLET PO SCH (09:40)
[2024-12-24] MEDS: midodrine 5mg tablet PO ONE (13:11)
[2024-12-24] MEDS ORDERED: iohexol 300mg/ml 100ml inj. ONE (14:24)
[2024-12-24 14:41] LABS: HEMATOCRIT 27.6 % (35.0-45.0); HEMOGLOBIN 8.9 g/dl (12.0-16.0); MEAN CORPUSCULAR HEMOGLOBIN 29.1 PG (27.0-31.0); MEAN CORPUSCULAR HGB CONC 32.1 g/dL (33.0-36.5); MEAN CORPUSCULAR VOLUME 90.7 FL (78-98); MEAN PLATELET VOLUME 8.2 FL (7.4-10.4); PLATELET COUNT 252 X10'3 (140-440); RED BLOOD COUNT 3.05 X10'6 (4.20-5.60); RED CELL DISTRIBUTION WIDTH 18.9 % (11.5-14.5); WHITE BLOOD COUNT 16.4 X10'3 (4.5-11.0)
[2024-12-24] MEDS: PEG 3350/Na sulf,bicarb,Cl/KCl oral sol 4 liter bottle PO ONE (14:57)
[2024-12-24] MEDS: LORazepam 0.5 MG tablet PO SCH (21:33)
[2024-12-25] VITALS (31 sets, daily range): BP systolic 89–120; BP diastolic 30–68; PULSE 68–97; RESP 13–29; TEMP 97.1–97.6; O2SAT 92–100
[2024-12-25 06:25] LABS: PROTHROMBIN TIME 10.8 SECONDS (9.0-12.0)
[2024-12-25 06:27] LABS: BASOPHILS % (AUTO) 0.1 % (0-1); EOSINOPHILS % (AUTO) 0 % (0-6); HEMOGLOBIN 7.9 g/dl (12.0-16.0); LYMPHOCYTES # (AUTO) 2.3 X10'3 (1.1-4.8); LYMPHOCYTES % (AUTO) 20.3 % (21-51); MEAN CORPUSCULAR HEMOGLOBIN 29.6 PG (27.0-31.0); MEAN CORPUSCULAR VOLUME 89.8 FL (78-98); MEAN PLATELET VOLUME 7.7 FL (7.4-10.4); MONOCYTES # (AUTO) 1.4 X10'3 (0-0.9); MONOCYTES % (AUTO) 12.6 % (2-12); NEUTROPHILS # (AUTO) 7.4 X10'3 (1.8-7.7); PLATELET COUNT 222 X10'3 (140-440); RED BLOOD COUNT 2.67 X10'6 (4.20-5.60); RED CELL DISTRIBUTION WIDTH 19.6 % (11.5-14.5); WHITE BLOOD COUNT 11.1 X10'3 (4.5-11.0)
[2024-12-25 06:56] LABS: ALANINE AMINOTRANSFERASE 17 U/L (12-78); ALBUMIN 2.9 G/DL (3.4-5.0); ALKALINE PHOSPHATASE 81 IU/L (46-116); ANION GAP 11 (8-16); ASPARTATE AMINO TRANSFERASE 25 U/L (10-37); BILIRUBIN,TOTAL 1.7 MG/DL (0.1-1.0); BLOOD UREA NITROGEN 25 MG/DL (7-18); BUN/CREATININE RATIO 27.5 (10.0-20.0); CALCIUM 8.4 MG/DL (8.5-10.1); CHLORIDE 107 MMOL/L (99-107); CREATININE 0.91 MG/DL (0.40-0.90); GLUCOSE 95 MG/DL (70-104); MAGNESIUM 1.9 MG/DL (1.5-2.4); SODIUM 142 MMOL/L (135-145); TOTAL PROTEIN 5.8 G/DL (6.4-8.2); eCRCL 54 ML/MIN; eGFR 63 ML/MIN
[2024-12-25 06:59] LABS: POTASSIUM 2.9 MMOL/L (3.5-5.1)
[2024-12-25] MEDS: potassium Cl 20 mEq SR tablet PO PRN ×2 (07:04→21:22)
[2024-12-25 07:19] LABS: ANISOCYTOSIS 2+; PLATELET ESTIMATE NORMAL; POLYCHROMASIA 1+
[2024-12-25] MEDS ORDERED: LIDOcaine 2% Viscous 15ml cup ONE (10:13)
[2024-12-25] MEDS ORDERED: MIDAZolam 1 MG/ML 5ML VIAL ONE (10:25)
[2024-12-25] MEDS ORDERED: fentaNYL/PF 50MCG/1 ML 2ML syringe ONE (10:25)
[2024-12-25] MEDS ORDERED: simethicone 40mg/0.6ml oral drops 30ml ONE (10:27)
[2024-12-25] MEDS ORDERED: CefTRIAXone 2gm/D5W 50ml BAG 50 ML IV SCH (14:30)
[2024-12-25] MEDS ORDERED: metroNIDAZOLE-Flagyl 500mg/NS 100 ML IV SCH (14:30)
[2024-12-25 14:46] LABS: MAGNESIUM 1.9 MG/DL (1.5-2.4); POTASSIUM 3.2 MMOL/L (3.5-5.1)
[2024-12-25] MEDS: K, MAG and/or Phos replacement - Verify level? MC SCH (21:00)
[2024-12-25] MEDS ORDERED: potassium Cl 20 mEq SR tablet PO PRN (21:00)
[2024-12-25] MEDS: pantoprazole 40 MG vial IV SCH (21:23)
[2024-12-25] MEDS: guaiFENesin ER 600mg tablet PO PRN (21:23)
[2024-12-26] VITALS (13 sets, daily range): BP systolic 103–137; BP diastolic 39–112; PULSE 78–101; RESP 10–18; TEMP 96.6–97.5; O2SAT 95–98
[2024-12-26 06:46] LABS: BASOPHILS % (AUTO) 0.2 % (0-1); EOSINOPHILS % (AUTO) 0 % (0-6); HEMATOCRIT 23.1 % (35.0-45.0); HEMOGLOBIN 7.4 g/dl (12.0-16.0); LYMPHOCYTES # (AUTO) 1.4 X10'3 (1.1-4.8); LYMPHOCYTES % (AUTO) 18.5 % (21-51); MEAN CORPUSCULAR HEMOGLOBIN 29.7 PG (27.0-31.0); MEAN CORPUSCULAR HGB CONC 32.2 g/dL (33.0-36.5); MEAN CORPUSCULAR VOLUME 92.2 FL (78-98); MEAN PLATELET VOLUME 7.7 FL (7.4-10.4); MONOCYTES % (AUTO) 13.2 % (2-12); NEUTROPHILS # (AUTO) 5.2 X10'3 (1.8-7.7); NEUTROPHILS % (AUTO) 68.1 % (42-75); PLATELET COUNT 190 X10'3 (140-440); RED CELL DISTRIBUTION WIDTH 21.3 % (11.5-14.5); WHITE BLOOD COUNT 7.6 X10'3 (4.5-11.0)
[2024-12-26 06:57] LABS: PROTHROMBIN TIME 10.3 SECONDS (9.0-12.0)
[2024-12-26 07:03] LABS: ALANINE AMINOTRANSFERASE 15 U/L (12-78); ALBUMIN 2.7 G/DL (3.4-5.0); ALBUMIN/GLOBULIN RATIO 0.9 (1.1-1.5); ALKALINE PHOSPHATASE 75 IU/L (46-116); ANION GAP 9 (8-16); ASPARTATE AMINO TRANSFERASE 20 U/L (10-37); BILIRUBIN,TOTAL 1.3 MG/DL (0.1-1.0); BLOOD UREA NITROGEN 19 MG/DL (7-18); BUN/CREATININE RATIO 22.6 (10.0-20.0); CALCIUM 8.5 MG/DL (8.5-10.1); CHLORIDE 110 MMOL/L (99-107); CREATININE 0.84 MG/DL (0.40-0.90); GLUCOSE 100 MG/DL (70-104); MAGNESIUM 2.1 MG/DL (1.5-2.4); POTASSIUM 4.1 MMOL/L (3.5-5.1); SODIUM 142 MMOL/L (135-145); TOTAL CARBON DIOXIDE 23.3 MMOL/L (24-32); TOTAL PROTEIN 5.7 G/DL (6.4-8.2); eCRCL 59 ML/MIN; eGFR 69 ML/MIN
[2024-12-26] MEDS: atenolol 25mg tablet PO SCH (21:39)
[2024-12-27] VITALS (12 sets, daily range): BP systolic 99–117; BP diastolic 51–68; PULSE 71–79; RESP 12–23; TEMP 96.8–98; O2SAT 95–99
[2024-12-27 07:15] LABS: BASOPHILS % (AUTO) 0.1 % (0-1); EOSINOPHILS % (AUTO) 0 % (0-6); HEMATOCRIT 28.6 % (35.0-45.0); HEMOGLOBIN 8.9 g/dl (12.0-16.0); LYMPHOCYTES # (AUTO) 1.4 X10'3 (1.1-4.8); LYMPHOCYTES % (AUTO) 21.3 % (21-51); MEAN CORPUSCULAR HEMOGLOBIN 28.7 PG (27.0-31.0); MEAN CORPUSCULAR HGB CONC 31.2 g/dL (33.0-36.5); MEAN PLATELET VOLUME 7.8 FL (7.4-10.4); MONOCYTES % (AUTO) 15.2 % (2-12); NEUTROPHILS # (AUTO) 4.3 X10'3 (1.8-7.7); NEUTROPHILS % (AUTO) 63.4 % (42-75); PLATELET COUNT 263 X10'3 (140-440); RED CELL DISTRIBUTION WIDTH 20.5 % (11.5-14.5); WHITE BLOOD COUNT 6.7 X10'3 (4.5-11.0)
[2024-12-27 08:22] LABS: ALANINE AMINOTRANSFERASE 19 U/L (12-78); ALBUMIN 3.3 G/DL (3.4-5.0); ALBUMIN/GLOBULIN RATIO 0.9 (1.1-1.5); ALKALINE PHOSPHATASE 87 IU/L (46-116); ANION GAP 12 (8-16); ASPARTATE AMINO TRANSFERASE 22 U/L (10-37); BILIRUBIN,TOTAL 1.3 MG/DL (0.1-1.0); BLOOD UREA NITROGEN 17 MG/DL (7-18); BUN/CREATININE RATIO 17.9 (10.0-20.0); CALCIUM 9.2 MG/DL (8.5-10.1); CHLORIDE 107 MMOL/L (99-107); CREATININE 0.95 MG/DL (0.40-0.90); GLUCOSE 96 MG/DL (70-104); POTASSIUM 3.8 MMOL/L (3.5-5.1); PRO BRAIN NATRIURETIC PEPTIDE 715 PG/ML (0-125); SODIUM 143 MMOL/L (135-145); TOTAL CARBON DIOXIDE 23.9 MMOL/L (24-32); eCRCL 52 ML/MIN; eGFR 60 ML/MIN
[2024-12-27 08:50] LABS: NUCLEATED RED BLOOD CELLS 1 /100WBC (0-0); PLATELET ESTIMATE NORMAL; TOTAL CELLS COUNTED 100
[2024-12-27 08:51] LABS: ANISOCYTOSIS 3+; POLYCHROMASIA 1+
[2024-12-27] MEDS: baclofen 10mg tablet PO PRN (12:20)
[2024-12-27] MEDS ORDERED: potassium Cl 40MEQ/1/2NS 520ml 520 ML IV PRN (16:20)
[2024-12-27] MEDS ORDERED: magnesium sulf-water 2g/50mL 50 ML IV PRN (16:20)
[2024-12-27] MEDS ORDERED: potassium Cl 20 mEq SR tablet PO PRN (16:20)
[2024-12-27] MEDS: diazepam 5mg tablet PO ONE (16:20)
[2024-12-27] MEDS ORDERED: MESSAGE TO NURSING PO ONE ×4 (16:20)
[2024-12-27] MEDS ORDERED: MALTODEXTRIN/FRUCTOSE 0.68 KCAL/ML LIQUID 296ML BOTTLE PO ONE (16:20)
[2024-12-27] MEDS ORDERED: potassium Cl 40MEQ/270ML bag 250 ML IV PRN (16:20)
[2024-12-27] MEDS ORDERED: potassium Cl 20mEq/100mL bag 100 ML IV PRN (16:20)
[2024-12-27] MEDS ORDERED: potassium CL 10mEq/100ml bag 100 ML IV PRN (16:20)
[2024-12-27] MEDS ORDERED: magnesium sulf-water 4G/100mL 100 ML IV PRN (16:20)
[2024-12-27] MEDS: SUMAtriptan 25 MG tablet PO PRN (17:04)
[2024-12-27] MEDS: ringers solution, lacted 1,000 ML IV ONE (17:11)
[2024-12-27 17:28] LABS: APTT 23 SECONDS (22-32); INR 0.9 INR; PROTHROMBIN TIME 9.8 SECONDS (9.0-12.0)
[2024-12-27] MEDS: metoprolol tartrate 12.5mg (1/2 tablet) PO SCH (20:21)
[2024-12-28] VITALS (28 sets, daily range): BP systolic 59–180; BP diastolic 31–86; PULSE 69–106; RESP 14–29; TEMP 98.6; O2SAT 93–100
[2024-12-28] MEDS: ceFAZolin 2gm in dextrose, iso 50 ML IV ONE (05:30)
[2024-12-28] MEDS: famotidine 20mg tablet PO ONE (06:00)
[2024-12-28] MEDS: MESSAGE TO NURSING IV ONE (07:00)
[2024-12-28 07:06] LABS: BASOPHILS % (AUTO) 0.2 % (0-1); EOSINOPHILS % (AUTO) 0 % (0-6); HEMATOCRIT 29.3 % (35.0-45.0); HEMOGLOBIN 9.3 g/dl (12.0-16.0); LYMPHOCYTES # (AUTO) 1.3 X10'3 (1.1-4.8); LYMPHOCYTES % (AUTO) 15.3 % (21-51); MEAN CORPUSCULAR HEMOGLOBIN 28.8 PG (27.0-31.0); MEAN CORPUSCULAR HGB CONC 31.8 g/dL (33.0-36.5); MEAN CORPUSCULAR VOLUME 90.5 FL (78-98); MEAN PLATELET VOLUME 7.6 FL (7.4-10.4); MONOCYTES # (AUTO) 1.1 X10'3 (0-0.9); MONOCYTES % (AUTO) 12.8 % (2-12); NEUTROPHILS # (AUTO) 5.9 X10'3 (1.8-7.7); NEUTROPHILS % (AUTO) 71.7 % (42-75); PLATELET COUNT 285 X10'3 (140-440); RED BLOOD COUNT 3.24 X10'6 (4.20-5.60); RED CELL DISTRIBUTION WIDTH 19.5 % (11.5-14.5); WHITE BLOOD COUNT 8.2 X10'3 (4.5-11.0)
[2024-12-28 07:25] LABS: PROTHROMBIN TIME 10.2 SECONDS (9.0-12.0)
[2024-12-28] MEDS ORDERED: ceFAZolin 1000mg inj ONE (07:30)
[2024-12-28] MEDS ORDERED: epiNEPHrine 1 mg/ml inj ONE (07:30)
[2024-12-28] MEDS ORDERED: vancomycin 1,000mg inj ONE ×2 (07:30→07:31)
[2024-12-28] MEDS ORDERED: Insulin Reg/NS 100units/100mL 100 ML IV SCH (07:50)
[2024-12-28] MEDS ORDERED: dextrose 50%-water 50ml dispensing syringe IV PRN ×2 (07:50→15:30)
[2024-12-28 08:20] LABS: ALBUMIN 3.5 G/DL (3.4-5.0); ANION GAP 10 (8-16); BLOOD UREA NITROGEN 20 MG/DL (7-18); BUN/CREATININE RATIO 20.6 (10.0-20.0); CALCIUM 9.2 MG/DL (8.5-10.1); CHLORIDE 104 MMOL/L (99-107); CREATININE 0.97 MG/DL (0.40-0.90); GLUCOSE 98 MG/DL (70-104); POTASSIUM 3.9 MMOL/L (3.5-5.1); SODIUM 141 MMOL/L (135-145); TOTAL CARBON DIOXIDE 26.8 MMOL/L (24-32); eCRCL 51 ML/MIN; eGFR 59 ML/MIN
[2024-12-28] MEDS ORDERED: INSULIN LISPRO 100 UNIT/ML INSULN.PEN MULTI-DOSE SQ SCH (09:00)
[2024-12-28 09:55] LABS: ABG BASE EXCESS 2.1 mmol/L (-2.0-3.0); ABG HCO3 24.8 mmol/L (21.0-28.0); ABG PCO2 (T) 32.2 mmHg (32.0-45.0); ABG PH (T) 7.505 (7.350-7.450); ABG PO2 (T) 65.6 mmHg (83.0-108.0); FCOHb 0.8 % (0.5-1.5); FHHb 6.9 % (0.0-5.0); FMetHb 0.3 % (0.0-1.5); MODE ROOM AIR; TOTAL HEMOGLOBIN 10.4 G/dl (12.0-16.0)
[2024-12-28] MEDS ORDERED: MESSAGE TO NURSING PO ONE (10:00)
[2024-12-28] MEDS: mupirocin 2% nasal ointment 1gm UD NS STA (10:54)
[2024-12-28] MEDS: vancomycin inj 1,000 MG in normal saline 250ml IV soln 250 ML IV ONE (11:23)
[2024-12-28] MEDS: midazolam 1 mg/ML 2ml injection ONE (11:24)
[2024-12-28] MEDS ORDERED: propofol inj 20 ML IV ONE (11:39)
[2024-12-28] MEDS ORDERED: MIDAZolam 1 MG/ML 5ML VIAL ONE (11:39)
[2024-12-28] MEDS ORDERED: SUfentanil 50mcg/ml 1ml amp IV ONE (11:39)
[2024-12-28] MEDS ORDERED: rocuronium 10mg/ml inj IV ONE ×3 (11:40→16:24)
[2024-12-28] MEDS ORDERED: sevoflurane 250ml liquid IH ONE (11:49)
[2024-12-28 12:42] LABS: ABG BASE EXCESS -0.7 mmol/L (-2.0-3.0); ABG HCO3 23.3 mmol/L (21.0-28.0); ABG PCO2 35.9 mmHg (32.0-45.0); ABG PO2 87.9 mmHg (83.0-108.0); CL (ABG) 104 mmol/L (98-107); FCOHb 0.3 % (0.5-1.5); FMetHb 0.3 % (0.0-1.5); FO2Hb 95.4 % (94.0-98.0); GLUCOSE (ABG) 96 mg/dl (65-95); IONIZED CA (ABG) 1.21 mmol/L (1.15-1.33); K (ABG) 4.1 mmol/L (3.40-4.50); TOTAL HEMOGLOBIN 9.6 G/dl (12.0-16.0)
[2024-12-28 13:16] LABS: ABG BASE EXCESS -1.4 mmol/L (-2.0-3.0); ABG HCO3 22.8 mmol/L (21.0-28.0); ABG PCO2 35.6 mmHg (32.0-45.0); ABG PH 7.425 (7.350-7.450); CL (ABG) 99 mmol/L (98-107); FCOHb 1.5 % (0.5-1.5); FMetHb 0.3 % (0.0-1.5); FO2Hb 98.2 % (94.0-98.0); GLUCOSE (ABG) 87 mg/dl (65-95); IONIZED CA (ABG) 0.85 mmol/L (1.15-1.33)
[2024-12-28] MEDS: ceFAZolin 1000mg inj IR ONE (13:20)
[2024-12-28 13:43] LABS: ABG BASE EXCESS -0.3 mmol/L (-2.0-3.0); ABG HCO3 24.4 mmol/L (21.0-28.0); ABG OXYGEN SATURATION 99.7 % (94.0-98.0); ABG PCO2 39.6 mmHg (32.0-45.0); ABG PH 7.407 (7.350-7.450); CL (ABG) 102 mmol/L (98-107); FCOHb 1.4 % (0.5-1.5); FHHb 0.3 % (0.0-5.0); FMetHb 0.3 % (0.0-1.5); GLUCOSE (ABG) 101 mg/dl (65-95); IONIZED CA (ABG) 1.17 mmol/L (1.15-1.33); K (ABG) 5.2 mmol/L (3.40-4.50); TOTAL HEMOGLOBIN 7.9 G/dl (12.0-16.0)
[2024-12-28 14:20] LABS: ACT @ 1.70 U 283 SEC (193-297); ACT @ 2.84 U 390 SEC (260-420); BASELINE ACT 144 SEC (101-148)
[2024-12-28 14:22] LABS: ABG BASE EXCESS 6.7 mmol/L (-2.0-3.0); ABG HCO3 30.9 mmol/L (21.0-28.0); ABG OXYGEN SATURATION 99.7 % (94.0-98.0); ABG PCO2 42.9 mmHg (32.0-45.0); ABG PH 7.475 (7.350-7.450); CL (ABG) 99 mmol/L (98-107); FCOHb 2.4 % (0.5-1.5); FHHb 0.3 % (0.0-5.0); FMetHb 0.3 % (0.0-1.5); GLUCOSE (ABG) 144 mg/dl (65-95); IONIZED CA (ABG) 1.16 mmol/L (1.15-1.33); K (ABG) 5.5 mmol/L (3.40-4.50)
[2024-12-28 14:45] LABS: ABG BASE EXCESS -1.9 mmol/L (-2.0-3.0); ABG HCO3 24.1 mmol/L (21.0-28.0); ABG PCO2 47.1 mmHg (32.0-45.0); ABG PH 7.326 (7.350-7.450); CL (ABG) 102 mmol/L (98-107); FCOHb 0.7 % (0.5-1.5); FHHb 21.2 % (0.0-5.0); FMetHb 0.1 % (0.0-1.5); GLUCOSE (ABG) 155 mg/dl (65-95); IONIZED CA (ABG) 1.12 mmol/L (1.15-1.33); TOTAL HEMOGLOBIN 7.7 G/dl (12.0-16.0)
[2024-12-28 14:48] LABS: ACTIVATED CLOTTING TIME 106 SEC (101-148)
[2024-12-28] MEDS ORDERED: Neutra Phos packet PO PRN (15:30)
[2024-12-28] MEDS ORDERED: mineral oil 133ml enema RC PRN (15:30)
[2024-12-28] MEDS ORDERED: nitroGLYCERIN-Tridil 50MG/D5W 250 ML IV PRN (15:30)
[2024-12-28] MEDS ORDERED: sodium phosphate inj. 30 MMOL in dextrose 5%-water 250 ML IV PRN (15:30)
[2024-12-28] MEDS: Insulin Reg/NS 100units/100mL 100 ML IV SCH (15:30)
[2024-12-28] MEDS ORDERED: potassium CL 10mEq/100ml bag 100 ML IV PRN (15:30)
[2024-12-28] MEDS ORDERED: potassium Cl 20 mEq SR tablet PO PRN (15:30)
[2024-12-28] MEDS ORDERED: acetaminophen 325mg tablet PO PRN (15:30)
[2024-12-28] MEDS ORDERED: bisacodyl 10mg suppository rectal RC PRN (15:30)
[2024-12-28] MEDS ORDERED: magnesium sulf-water 4G/100mL 100 ML IV PRN (15:30)
[2024-12-28] MEDS ORDERED: potassium Cl 40MEQ/1/2NS 520ml 520 ML IV PRN (15:30)
[2024-12-28] MEDS ORDERED: niCARDipine-NS 40mg/200ml IVPB 200 ML IV PRN (15:30)
[2024-12-28] MEDS ORDERED: potassium Cl 40MEQ/270ML bag 250 ML IV PRN (15:30)
[2024-12-28] MEDS ORDERED: insulin glargine (Lantus) pen - multi-dose SQ PRN (15:30)
[2024-12-28] MEDS ORDERED: sodium phosphate inj. 15 MMOL in dextrose 5%-water 250 ML IV PRN (15:30)
[2024-12-28 15:41] LABS: APTT 28 SECONDS (22-32); FIBRINOGEN 201 MG/DL (177-424); INR 1.2 INR; PROTHROMBIN TIME 12.4 SECONDS (9.0-12.0)
[2024-12-28] MEDS: morphine 4 MG/ML inj SYRINge IV PRN (15:48)
[2024-12-28 16:00] LABS: ABG BASE EXCESS -4.5 mmol/L (-2.0-3.0); ABG HCO3 20.2 mmol/L (21.0-28.0); ABG OXYGEN SATURATION 94.2 % (94.0-98.0); ABG PCO2 (T) 35.7 mmHg (32.0-45.0); ABG PH (T) 7.371 (7.350-7.450); ABG PO2 (T) 81.6 mmHg (83.0-108.0); FCOHb 0.6 % (0.5-1.5); FHHb 5.8 % (0.0-5.0); FMetHb 0.1 % (0.0-1.5); FO2Hb 93.5 % (94.0-98.0); MODE VENT - SIMV; RESPIRATORY RATE 14 b/min; TIDAL VOLUME 500 mL; TOTAL HEMOGLOBIN 10.4 G/dl (12.0-16.0)
[2024-12-28 16:15] LABS: BASOPHILS % (AUTO) 0.1 % (0-1); EOSINOPHILS % (AUTO) 0 % (0-6); HEMATOCRIT 30.3 % (35.0-45.0); HEMOGLOBIN 9.6 g/dl (12.0-16.0); LYMPHOCYTES # (AUTO) 1.4 X10'3 (1.1-4.8); MEAN CORPUSCULAR HEMOGLOBIN 28.1 PG (27.0-31.0); MEAN CORPUSCULAR HGB CONC 31.7 g/dL (33.0-36.5); MEAN CORPUSCULAR VOLUME 88.7 FL (78-98); MEAN PLATELET VOLUME 8.1 FL (7.4-10.4); MONOCYTES # (AUTO) 1.2 X10'3 (0-0.9); NEUTROPHILS # (AUTO) 17.2 X10'3 (1.8-7.7); NEUTROPHILS % (AUTO) 86.9 % (42-75); PLATELET COUNT 223 X10'3 (140-440); RED BLOOD COUNT 3.42 X10'6 (4.20-5.60); RED CELL DISTRIBUTION WIDTH 18.5 % (11.5-14.5); WHITE BLOOD COUNT 19.8 X10'3 (4.5-11.0)
[2024-12-28] MEDS ORDERED: albumin (Human) 5% 250ml 250 ML IV ONE ×2 (16:24)
[2024-12-28 16:33] LABS: ALANINE AMINOTRANSFERASE 21 U/L (12-78); ALBUMIN 3.4 G/DL (3.4-5.0); ALBUMIN/GLOBULIN RATIO 1.7 (1.1-1.5); ALKALINE PHOSPHATASE 54 IU/L (46-116); ANION GAP 8 (8-16); BILIRUBIN,TOTAL 3.1 MG/DL (0.1-1.0); BLOOD UREA NITROGEN 18 MG/DL (7-18); BUN/CREATININE RATIO 22.8 (10.0-20.0); CALCIUM 9.2 MG/DL (8.5-10.1); CHLORIDE 108 MMOL/L (99-107); CREATININE 0.79 MG/DL (0.40-0.90); GLUCOSE 171 MG/DL (70-104); MAGNESIUM 3.2 MG/DL (1.5-2.4); SODIUM 142 MMOL/L (135-145); TOTAL CARBON DIOXIDE 25.7 MMOL/L (24-32); TOTAL PROTEIN 5.4 G/DL (6.4-8.2); eCRCL 63 ML/MIN; eGFR 74 ML/MIN
[2024-12-28] MEDS: ceFAZolin/D5W- 1GM premix 50 ML IV SCH (16:41)
[2024-12-28] MEDS: albumin (Human) 5% 250ml 250 ML IV PRN (16:42)
[2024-12-28] MEDS: sodium chloride 0.45% 1,000 ML IV SCH (16:42)
[2024-12-28 16:44] LABS: PHOSPHORUS 4.2 MG/DL (2.3-4.5); POTASSIUM 5.2 MMOL/L (3.5-5.1)
[2024-12-28 16:45] LABS: ASPARTATE AMINO TRANSFERASE 52 U/L (10-37)
[2024-12-28] MEDS ORDERED: VALA100031 PO (17:00)
[2024-12-28] MEDS: NORepinephrine 8mg/ 250ml NS 250 ML IV PRN (19:42)
[2024-12-28] MEDS: sennosides/docusate sodium tablet PO SCH (19:52)
[2024-12-28] MEDS: atorvastatin 10mg tablet PO SCH (19:52)
[2024-12-28] MEDS: ketorolac trometh 15mg/ml vial 15 MG/ML ML IV SCH (19:55)
[2024-12-28] MEDS: vancomycin/NS 1 GM ADD-VANTAGE 250 ML IV SCH (19:55)
[2024-12-28] MEDS: mupirocin 2% nasal ointment 1gm UD NS SCH (19:56)
[2024-12-28] MEDS ORDERED: mupirocin 2% nasal ointment 1gm UD NS SCH (20:00)
[2024-12-28] MEDS ORDERED: VANCOMYCIN 1GM 200ML H20 (PEG) 200 ML IV SCH (20:00)
[2024-12-28 21:24] LABS: BASOPHILS % (AUTO) 0 % (0-1); EOSINOPHILS % (AUTO) 0 % (0-6); HEMATOCRIT 26.9 % (35.0-45.0); HEMOGLOBIN 8.5 g/dl (12.0-16.0); LYMPHOCYTES # (AUTO) 0.6 X10'3 (1.1-4.8); LYMPHOCYTES % (AUTO) 3.4 % (21-51); MEAN CORPUSCULAR HEMOGLOBIN 28.4 PG (27.0-31.0); MEAN CORPUSCULAR HGB CONC 31.8 g/dL (33.0-36.5); MEAN CORPUSCULAR VOLUME 89.5 FL (78-98); MEAN PLATELET VOLUME 7.8 FL (7.4-10.4); MONOCYTES # (AUTO) 0.8 X10'3 (0-0.9); MONOCYTES % (AUTO) 4.4 % (2-12); NEUTROPHILS # (AUTO) 17.3 X10'3 (1.8-7.7); NEUTROPHILS % (AUTO) 92.2 % (42-75); PLATELET COUNT 209 X10'3 (140-440); RED BLOOD COUNT 3.01 X10'6 (4.20-5.60); RED CELL DISTRIBUTION WIDTH 18.8 % (11.5-14.5); WHITE BLOOD COUNT 18.8 X10'3 (4.5-11.0)
[2024-12-28 21:39] LABS: ALBUMIN 4.2 G/DL (3.4-5.0); ANION GAP 11 (8-16); BLOOD UREA NITROGEN 20 MG/DL (7-18); CALCIUM 8.7 MG/DL (8.5-10.1); CHLORIDE 111 MMOL/L (99-107); GLUCOSE 151 MG/DL (70-104); MAGNESIUM 3.1 MG/DL (1.5-2.4); PHOSPHORUS 4.7 MG/DL (2.3-4.5); POTASSIUM 4.3 MMOL/L (3.5-5.1); SODIUM 147 MMOL/L (135-145); TOTAL CARBON DIOXIDE 24.9 MMOL/L (24-32); eCRCL 49 ML/MIN; eGFR 57 ML/MIN
[2024-12-28] MEDS: albumin (Human) 5% 250ml 250 ML IV ONE (21:54)
[2024-12-28] MEDS: potassium Cl 20mEq/100mL bag 100 ML IV PRN (21:59)
[2024-12-28 23:31] LABS: ABG BASE EXCESS -3.2 mmol/L (-2.0-3.0); ABG HCO3 20.5 mmol/L (21.0-28.0); ABG OXYGEN SATURATION 97.9 % (94.0-98.0); ABG PCO2 (T) 31.2 mmHg (32.0-45.0); ABG PH (T) 7.436 (7.350-7.450); ABG PO2 (T) 108.8 mmHg (83.0-108.0); FCOHb 1.2 % (0.5-1.5); FHHb 2.1 % (0.0-5.0); FMetHb 0.3 % (0.0-1.5); FO2Hb 96.4 % (94.0-98.0); MODE VENT - CPAP; PATIENT TEMPERATURE 36.9; PEEP 8 cm H2O; TOTAL HEMOGLOBIN 7.8 G/dl (12.0-16.0)
[2024-12-28] MEDS: morphine 2 MG/ML inj. syringe IV PRN (23:41)
[2024-12-29] VITALS (31 sets, daily range): BP systolic 77–132; BP diastolic 41–69; PULSE 80–101; RESP 11–23; TEMP 97.8–98.9; O2SAT 92–99
[2024-12-29] MEDS: ondansetron/PF 4mg/2ml inj IV PRN (02:06)
[2024-12-29 03:01] LABS: BASOPHILS % (AUTO) 0.1 % (0-1); EOSINOPHILS % (AUTO) 0 % (0-6); LYMPHOCYTES # (AUTO) 0.4 X10'3 (1.1-4.8); LYMPHOCYTES % (AUTO) 4.1 % (21-51); MEAN CORPUSCULAR HEMOGLOBIN 28.5 PG (27.0-31.0); MEAN CORPUSCULAR VOLUME 89.1 FL (78-98); MEAN PLATELET VOLUME 7.9 FL (7.4-10.4); MONOCYTES # (AUTO) 0.7 X10'3 (0-0.9); MONOCYTES % (AUTO) 6.6 % (2-12); NEUTROPHILS # (AUTO) 8.8 X10'3 (1.8-7.7); NEUTROPHILS % (AUTO) 89.2 % (42-75); PLATELET COUNT 150 X10'3 (140-440); RED BLOOD COUNT 2.41 X10'6 (4.20-5.60); RED CELL DISTRIBUTION WIDTH 19.3 % (11.5-14.5); WHITE BLOOD COUNT 9.9 X10'3 (4.5-11.0)
[2024-12-29 03:18] LABS: ALANINE AMINOTRANSFERASE 24 U/L (12-78); ALBUMIN 4.1 G/DL (3.4-5.0); ALBUMIN/GLOBULIN RATIO 2.3 (1.1-1.5); ALKALINE PHOSPHATASE 48 IU/L (46-116); ANION GAP 9 (8-16); ASPARTATE AMINO TRANSFERASE 35 U/L (10-37); BLOOD UREA NITROGEN 19 MG/DL (7-18); BUN/CREATININE RATIO 20.2 (10.0-20.0); CALCIUM 8.5 MG/DL (8.5-10.1); CHLORIDE 112 MMOL/L (99-107); CREATININE 0.94 MG/DL (0.40-0.90); GLUCOSE 125 MG/DL (70-104); MAGNESIUM 2.9 MG/DL (1.5-2.4); PHOSPHORUS 4.4 MG/DL (2.3-4.5); POTASSIUM 4.5 MMOL/L (3.5-5.1); SODIUM 147 MMOL/L (135-145); TOTAL CARBON DIOXIDE 25.9 MMOL/L (24-32); TOTAL PROTEIN 5.9 G/DL (6.4-8.2); eCRCL 53 ML/MIN; eGFR 61 ML/MIN
[2024-12-29 03:21] LABS: HEMATOCRIT 21.5 % (35.0-45.0); HEMOGLOBIN 6.9 g/dl (12.0-16.0)
[2024-12-29] MEDS: metoprolol tartrate 12.5mg (1/2 tablet) PO SCH (07:43)
[2024-12-29] MEDS: aspirin 81mg tab.chew PO SCH (07:43)
[2024-12-29] MEDS: HYDROcodone/acetaminophen 10/325mg tab PO PRN (07:44)
[2024-12-29] MEDS ORDERED: dextrose 50%-water 50ml dispensing syringe IV PRN ×2 (07:45)
[2024-12-29] MEDS ORDERED: DEXTROSE 15 GM of carb/4 tabs (each vial/BOTTLE has 4 tablets) PO PRN ×2 (07:45)
[2024-12-29] MEDS ORDERED: glucagon, human recombinant 1mg kit SUBCUT PRN (07:45)
[2024-12-29 08:49] LABS: ABG PO2 443.4 mmHg (83.0-108.0)
[2024-12-29 08:50] LABS: ABG PO2 437.4 mmHg (83.0-108.0)
[2024-12-29 08:50] LABS: TOTAL HEMOGLOBIN 6.1 G/dl (12.0-16.0)
[2024-12-29 08:50] LABS: ABG PO2 377.9 mmHg (83.0-108.0)
[2024-12-29 08:51] LABS: TOTAL HEMOGLOBIN 6.6 G/dl (12.0-16.0)
[2024-12-29 08:51] LABS: ABG OXYGEN SATURATION 78.6 % (94.0-98.0); ABG PO2 48.4 mmHg (83.0-108.0)
[2024-12-29 11:51] LABS: BASOPHILS % (AUTO) 0.2 % (0-1); EOSINOPHILS % (AUTO) 0 % (0-6); HEMATOCRIT 23.8 % (35.0-45.0); HEMOGLOBIN 7.5 g/dl (12.0-16.0); LYMPHOCYTES % (AUTO) 7.7 % (21-51); MEAN CORPUSCULAR HEMOGLOBIN 27.8 PG (27.0-31.0); MEAN CORPUSCULAR HGB CONC 31.5 g/dL (33.0-36.5); MEAN CORPUSCULAR VOLUME 88.5 FL (78-98); MEAN PLATELET VOLUME 8.5 FL (7.4-10.4); MONOCYTES # (AUTO) 1.5 X10'3 (0-0.9); MONOCYTES % (AUTO) 11.8 % (2-12); NEUTROPHILS # (AUTO) 10.3 X10'3 (1.8-7.7); NEUTROPHILS % (AUTO) 80.3 % (42-75); PLATELET COUNT 147 X10'3 (140-440); RED BLOOD COUNT 2.69 X10'6 (4.20-5.60); RED CELL DISTRIBUTION WIDTH 18.5 % (11.5-14.5); WHITE BLOOD COUNT 12.8 X10'3 (4.5-11.0)
[2024-12-29] MEDS: INSULIN LISPRO 100 UNIT/ML INSULN.PEN MULTI-DOSE SQ SCH (12:00)
[2024-12-29] MEDS ORDERED: INSULIN LISPRO 100 UNIT/ML INSULN.PEN MULTI-DOSE SQ SCH (12:00)
[2024-12-29] MEDS: insulin glargine (Lantus) pen - multi-dose SQ SCH (20:09)
[2024-12-30] VITALS (24 sets, daily range): BP systolic 94–122; BP diastolic 48–84; PULSE 80–113; RESP 18–33; O2SAT 92–99
[2024-12-30 01:19] LABS: BASOPHILS % (AUTO) 0.1 % (0-1); EOSINOPHILS % (AUTO) 0 % (0-6); HEMATOCRIT 27.3 % (35.0-45.0); HEMOGLOBIN 8.9 g/dl (12.0-16.0); LYMPHOCYTES # (AUTO) 1.9 X10'3 (1.1-4.8); LYMPHOCYTES % (AUTO) 14.3 % (21-51); MEAN CORPUSCULAR HEMOGLOBIN 28.6 PG (27.0-31.0); MEAN CORPUSCULAR HGB CONC 32.7 g/dL (33.0-36.5); MEAN CORPUSCULAR VOLUME 87.6 FL (78-98); MEAN PLATELET VOLUME 8.5 FL (7.4-10.4); MONOCYTES # (AUTO) 1.6 X10'3 (0-0.9); MONOCYTES % (AUTO) 12.3 % (2-12); NEUTROPHILS # (AUTO) 9.8 X10'3 (1.8-7.7); NEUTROPHILS % (AUTO) 73.3 % (42-75); PLATELET COUNT 171 X10'3 (140-440); RED BLOOD COUNT 3.12 X10'6 (4.20-5.60); RED CELL DISTRIBUTION WIDTH 17.6 % (11.5-14.5); WHITE BLOOD COUNT 13.4 X10'3 (4.5-11.0)
[2024-12-30 01:32] LABS: ALBUMIN 3.4 G/DL (3.4-5.0); ANION GAP 5 (8-16); BLOOD UREA NITROGEN 21 MG/DL (7-18); BUN/CREATININE RATIO 23.6 (10.0-20.0); CALCIUM 8.1 MG/DL (8.5-10.1); CHLORIDE 109 MMOL/L (99-107); CREATININE 0.89 MG/DL (0.40-0.90); GLUCOSE 110 MG/DL (70-104); MAGNESIUM 2.3 MG/DL (1.5-2.4); PHOSPHORUS 2.6 MG/DL (2.3-4.5); POTASSIUM 4.7 MMOL/L (3.5-5.1); SODIUM 140 MMOL/L (135-145); TOTAL CARBON DIOXIDE 25.6 MMOL/L (24-32); eCRCL 56 ML/MIN; eGFR 65 ML/MIN
[2024-12-30] MEDS: magnesium sulf-water 2g/50mL 50 ML IV PRN (03:27)
[2024-12-30] MEDS: metoclopramide 5 mg/ml inj IV PRN (07:32)
[2024-12-30] MEDS: magnesium hydroxide 30ml (MOM) UD suspension PO PRN (08:00)
[2024-12-30] MEDS: pantoprazole 40mg Tablet.DR PO SCH (08:02)
[2024-12-30] MEDS ORDERED: sodium phosphate inj. 15 MMOL in normal saline 250ml IV soln 250 ML IV PRN (10:45)
[2024-12-30] MEDS ORDERED: sodium phosphate inj. 30 MMOL in normal saline 250ml IV soln 250 ML IV PRN (10:46)
[2024-12-30] MEDS: ketorolac trometh 15mg/ml vial 15 MG/ML ML IV ONE (11:31)
[2024-12-31] VITALS (24 sets, daily range): BP systolic 102–145; BP diastolic 59–92; PULSE 82–113; RESP 12–30; O2SAT 91–100
[2024-12-31 03:15] LABS: BASOPHILS % (AUTO) 0.2 % (0-1); EOSINOPHILS % (AUTO) 0 % (0-6); HEMATOCRIT 29.2 % (35.0-45.0); HEMOGLOBIN 9.6 g/dl (12.0-16.0); LYMPHOCYTES # (AUTO) 1.3 X10'3 (1.1-4.8); LYMPHOCYTES % (AUTO) 11.5 % (21-51); MEAN CORPUSCULAR HEMOGLOBIN 28.9 PG (27.0-31.0); MEAN CORPUSCULAR HGB CONC 32.8 g/dL (33.0-36.5); MEAN PLATELET VOLUME 8.2 FL (7.4-10.4); MONOCYTES # (AUTO) 1.4 X10'3 (0-0.9); MONOCYTES % (AUTO) 11.9 % (2-12); NEUTROPHILS # (AUTO) 8.9 X10'3 (1.8-7.7); NEUTROPHILS % (AUTO) 76.4 % (42-75); PLATELET COUNT 225 X10'3 (140-440); RED BLOOD COUNT 3.31 X10'6 (4.20-5.60); RED CELL DISTRIBUTION WIDTH 17.2 % (11.5-14.5); WHITE BLOOD COUNT 11.7 X10'3 (4.5-11.0)
[2024-12-31 04:01] LABS: ALBUMIN 3.2 G/DL (3.4-5.0); ANION GAP 8 (8-16); BLOOD UREA NITROGEN 15 MG/DL (7-18); BUN/CREATININE RATIO 21.1 (10.0-20.0); CALCIUM 8.4 MG/DL (8.5-10.1); CHLORIDE 107 MMOL/L (99-107); CREATININE 0.71 MG/DL (0.40-0.90); GLUCOSE 111 MG/DL (70-104); MAGNESIUM 2.1 MG/DL (1.5-2.4); PHOSPHORUS 2.1 MG/DL (2.3-4.5); POTASSIUM 4.5 MMOL/L (3.5-5.1); SODIUM 140 MMOL/L (135-145); TOTAL CARBON DIOXIDE 25.5 MMOL/L (24-32); eCRCL 70 ML/MIN; eGFR 84 ML/MIN
[2024-12-31] MEDS: ringers solution, lacted 1,000 ML IV ONE (10:56)
[2024-12-31] MEDS ORDERED: ceFAZolin 1000mg inj ONE (12:09)
[2024-12-31] MEDS ORDERED: LIDOcaine 1% 30ml preserv. free vial ONE (12:09)
[2024-12-31] MEDS ORDERED: BUPIVAcaine 0.5% inj/PF 0 ML ONE (12:10)
[2025-01-01] VITALS (20 sets, daily range): BP systolic 110–145; BP diastolic 60–82; PULSE 71–93; RESP 11–27; TEMP 97–99; O2SAT 92–100
[2025-01-01 03:14] LABS: BASOPHILS % (AUTO) 0.1 % (0-1); EOSINOPHILS % (AUTO) 0 % (0-6); HEMATOCRIT 29.7 % (35.0-45.0); HEMOGLOBIN 9.7 g/dl (12.0-16.0); LYMPHOCYTES # (AUTO) 1.3 X10'3 (1.1-4.8); LYMPHOCYTES % (AUTO) 11.9 % (21-51); MEAN CORPUSCULAR HEMOGLOBIN 28.5 PG (27.0-31.0); MEAN CORPUSCULAR HGB CONC 32.6 g/dL (33.0-36.5); MEAN CORPUSCULAR VOLUME 87.5 FL (78-98); MEAN PLATELET VOLUME 7.7 FL (7.4-10.4); MONOCYTES # (AUTO) 1.3 X10'3 (0-0.9); MONOCYTES % (AUTO) 12.6 % (2-12); NEUTROPHILS # (AUTO) 7.9 X10'3 (1.8-7.7); NEUTROPHILS % (AUTO) 75.4 % (42-75); PLATELET COUNT 277 X10'3 (140-440); RED BLOOD COUNT 3.39 X10'6 (4.20-5.60); RED CELL DISTRIBUTION WIDTH 16.9 % (11.5-14.5); WHITE BLOOD COUNT 10.5 X10'3 (4.5-11.0)
[2025-01-01 03:38] LABS: ALBUMIN 2.9 G/DL (3.4-5.0); ANION GAP 5 (8-16); BLOOD UREA NITROGEN 14 MG/DL (7-18); BUN/CREATININE RATIO 21.2 (10.0-20.0); CALCIUM 8.6 MG/DL (8.5-10.1); CHLORIDE 108 MMOL/L (99-107); CREATININE 0.66 MG/DL (0.40-0.90); GLUCOSE 107 MG/DL (70-104); MAGNESIUM 1.9 MG/DL (1.5-2.4); PHOSPHORUS 2.7 MG/DL (2.3-4.5); POTASSIUM 4.2 MMOL/L (3.5-5.1); SODIUM 141 MMOL/L (135-145); TOTAL CARBON DIOXIDE 27.7 MMOL/L (24-32); eCRCL 75 ML/MIN; eGFR > 90 ML/MIN
[2025-01-01] MEDS: famotidine 20mg tablet PO ONE (05:44)
[2025-01-01] MEDS: HYDROcodone/acetaminophen 10/325mg tab PO PRN (07:38)
[2025-01-01] MEDS: furosemide 40mg/4ml inj IV ONE (10:04)
[2025-01-01] MEDS: heparin, porcine 5000 units/ml vial SQ SCH (16:00)
[2025-01-01] MEDS: acetaminophen 325mg tablet PO PRN (16:01)
[2025-01-02] VITALS (10 sets, daily range): BP systolic 100–155; BP diastolic 69–85; PULSE 83–114; RESP 15–31; TEMP 96.7–97.3; O2SAT 92–97
[2025-01-02 06:49] LABS: MAGNESIUM 1.8 MG/DL (1.5-2.4); PHOSPHORUS 4.3 MG/DL (2.3-4.5)
[2025-01-02 06:50] LABS: POTASSIUM 4.2 MMOL/L (3.5-5.1)
[2025-01-02] MEDS: albuterol 2.5 MG/3 ML nebule NEB PRN (10:59)
[2025-01-02] MEDS: furosemide 40mg/4ml inj IV ONE (11:46)
[2025-01-03] VITALS (7 sets, daily range): BP systolic 123–148; BP diastolic 72–75; PULSE 77–101; RESP 13–18; TEMP 97.3–97.7; O2SAT 92–98
[2025-01-03 08:23] LABS: PHOSPHORUS 3.7 MG/DL (2.3-4.5)
[2025-01-03] MEDS ORDERED: LOP12.5T PO (08:48)
[2025-01-03] MEDS ORDERED: HYDR-3972 PO (08:48)
== END 2025-01-03 15:01 | disposition home or self-care (01) | DRG 216 ==
LOC: ER 15:55 → ED HOLD 17:00 → UNDOADMIN 17:00 → ED HOLD 18:24 → PCU 3S 22:15 → CICU 2S 12-28 11:15 → PCU 3S 01-01 13:57
PROVIDERS: ADMIT Nurse Practitioner Family; ATTEND Nurse Practitioner Family
PROC: 30233N1 Transfusion of Nonautologous Red Blood Cells into Peripheral Vein, Percutaneous Approach (ICD-10-PCS; 2024-12-22)
PROC: 4A023N8 Measurement of Cardiac Sampling and Pressure, Bilateral, Percutaneous Approach (ICD-10-PCS; principal; 2024-12-23)
PROC: B2111ZZ Fluoroscopy of Multiple Coronary Arteries using Low Osmolar Contrast (ICD-10-PCS; 2024-12-23)
PROC: B2171ZZ Fluoroscopy of Right Internal Mammary Bypass Graft using Low Osmolar Contrast (ICD-10-PCS; 2024-12-23)
PROC: B2151ZZ Fluoroscopy of Left Heart using Low Osmolar Contrast (ICD-10-PCS; 2024-12-23)
PROC: B41F1ZZ Fluoroscopy of Right Lower Extremity Arteries using Low Osmolar Contrast (ICD-10-PCS; 2024-12-23)
PROC: 5A09357 Assistance with Respiratory Ventilation, Less than 24 Consecutive Hours, Continuous Positive Airway Pressure (ICD-10-PCS; 2024-12-23)
PROC: BW211ZZ Computerized Tomography (CT Scan) of Abdomen and Pelvis using Low Osmolar Contrast (ICD-10-PCS; 2024-12-24)
PROC: 5A09357 Assistance with Respiratory Ventilation, Less than 24 Consecutive Hours, Continuous Positive Airway Pressure (ICD-10-PCS; 2024-12-24)
PROC: 0DBN8ZZ Excision of Sigmoid Colon, Via Natural or Artificial Opening Endoscopic (ICD-10-PCS; 2024-12-25)
PROC: 0D568ZZ Destruction of Stomach, Via Natural or Artificial Opening Endoscopic (ICD-10-PCS; 2024-12-25)
PROC: 02RF08Z Replacement of Aortic Valve with Zooplastic Tissue, Open Approach (ICD-10-PCS; 2024-12-28)
PROC: 021009W Bypass Coronary Artery, One Artery from Aorta with Autologous Venous Tissue, Open Approach (ICD-10-PCS; 2024-12-28)
PROC: 06BP4ZZ Excision of Right Saphenous Vein, Percutaneous Endoscopic Approach (ICD-10-PCS; 2024-12-28)
PROC: 5A1221Z Performance of Cardiac Output, Continuous (ICD-10-PCS; 2024-12-28)
PROC: B24BZZ4 Ultrasonography of Heart with Aorta, Transesophageal (ICD-10-PCS; 2024-12-28)
PROC: 5A09357 Assistance with Respiratory Ventilation, Less than 24 Consecutive Hours, Continuous Positive Airway Pressure (ICD-10-PCS; 2024-12-28)
PROC: 5A09357 Assistance with Respiratory Ventilation, Less than 24 Consecutive Hours, Continuous Positive Airway Pressure (ICD-10-PCS; 2024-12-29)
PROC: 5A09357 Assistance with Respiratory Ventilation, Less than 24 Consecutive Hours, Continuous Positive Airway Pressure (ICD-10-PCS; 2024-12-30)
PROC: 5A09357 Assistance with Respiratory Ventilation, Less than 24 Consecutive Hours, Continuous Positive Airway Pressure (ICD-10-PCS; 2024-12-31)
PROC: 5A09357 Assistance with Respiratory Ventilation, Less than 24 Consecutive Hours, Continuous Positive Airway Pressure (ICD-10-PCS; 2025-01-01)
DX: T82.857A Stenosis of other cardiac prosthetic devices, implants and grafts, initial encounter (principal); I50.33 Acute on chronic diastolic (congestive) heart failure; N17.9 Acute kidney failure, unspecified; R65.10 Systemic inflammatory response syndrome (SIRS) of non-infectious origin without acute organ dysfunction; D62 Acute posthemorrhagic anemia; I44.2 Atrioventricular block, complete; K92.2 Gastrointestinal hemorrhage, unspecified; K31.9 Disease of stomach and duodenum, unspecified; K63.5 Polyp of colon; K31.819 Angiodysplasia of stomach and duodenum without bleeding; D50.9 Iron deficiency anemia, unspecified; D72.829 Elevated white blood cell count, unspecified; E11.9 Type 2 diabetes mellitus without complications; E66.01 Morbid (severe) obesity due to excess calories; E78.5 Hyperlipidemia, unspecified; E87.6 Hypokalemia; I11.0 Hypertensive heart disease with heart failure; I25.10 Atherosclerotic heart disease of native coronary artery without angina pectoris; I35.2 Nonrheumatic aortic (valve) stenosis with insufficiency; J44.9 Chronic obstructive pulmonary disease, unspecified; G47.30 Sleep apnea, unspecified; I95.9 Hypotension, unspecified; T40.605A Adverse effect of unspecified narcotics, initial encounter; Z87.442 Personal history of urinary calculi; Z79.01 Long term (current) use of anticoagulants; Z95.2 Presence of prosthetic heart valve; Y92.89 Other specified places as the place of occurrence of the external cause; Z87.891 Personal history of nicotine dependence; Z88.1 Allergy status to other antibiotic agents; Z90.710 Acquired absence of both cervix and uterus; Z93.6 Other artificial openings of urinary tract status; Z98.51 Tubal ligation status; Z99.81 Dependence on supplemental oxygen
CPT/HCPCS: 36415; 36430; 36600; 43227; 45385; 71045; 74177; 76376; 76937; 80048; 80053; 81003; 82272; 82330; 82435; 82607; 82728; 82803; 82947; 82948; 83010; 83036; 83540; 83550; 83605; 83615; 83735; 83880; 84100; 84132; 84145; 84295; 84443; 84466; 84484; 85007; 85008; 85014; 85018; 85025; 85027; 85045; 85347; 85384; 85610; 85730; 86885; 86900; 86901; 86920; 87040; 87081; 88300; 88305; 93005; 93308; 93312; 93325; 93460; 93567; 93880; 93970; 94002; 94010; 94640; 94760; 97116; 97161; 97164; 97530; 99152; 99153; 99285; A4615; A4618; A4620; A6213; A6258; A6402; A6449; A7000; A7048; C1725; C1751; C1769; C1889; C1894; G0378; J0171; J0690; J1644; J1815; J1885; J1940; J2003; J2150; J2250; J2270; J2371; J2405; J2470; J2704; J2720; J2765; J2919; J3010; J3370; J3430; J3480; J3490; J7030; J7040; J7050; J7120; P9016; P9045; P9047; Q0163; Q9967